=== PATIENT | male | born 1955 | race Hispanic/Latino ===

== ENCOUNTER 2017-04-21 08:17 | Outpatient (CLI) | payer MEDICARE ==
--- NOTE | 2017-04-21 12:01 | PRG ---
DATE OF SERVICE: 04/21/2017 CHIEF COMPLAINT: Pain on the left foot. HISTORY OF PRESENT ILLNESS: A 61-year-old male who presents today for concern of a spot on the left foot under the left fifth metatarsal head. He says about 5 months ago it started hurting, increased pain with walking. He did notice about a week or so ago that it had some peeling skin around the are a. He went to his physician who gave him a topical antibiotic and referred [facility]. He says it has improved since that time. The patient's foot history does include a previous in fected ulceration to the right foot which required some resection of bone from the lateral aspect of the right foot. PAST MEDICAL HISTORY/PAST SURGICAL HISTORY/MEDICATIONS/ ALLERGIES/FAMILY HISTORY/SOCIAL HISTORY: As documented in the patient's paper chart in the [facility]. This was reviewed and deemed accur ate. REVIEW OF SYSTEMS: CONSTITUTIONAL: Denies nausea, vomiting, fevers or chills. NEUROLOGIC: Denies numbness, tingling or burning sensations in the feet. INTEGUMENTARY: Relates so me peeling skin to the left foot, but no open wounds. PHYSICAL EXAMINATION: VITAL SIGNS: Temperature 97.9, pulse 64, respirations 18, blood pressure 190/79. Blood sugar was 13 0. GENERAL: The patient is in no acute distress. He is alert and oriented x3. CARDIOVASCULAR: Dorsalis pedis pulses palpable, posterior tibial pulses are nonpalpable bilaterally. There is decreased hair growth to the feet. Temperature gradient is warm to cool from proximal to distal. There is absent hair growth. Capillary fill time is immediate to all toes. No varicosities present. NEUROLOGICAL: Light touch protective threshold intact on cursory exam. INTEGUMENTARY: No calluses or hyperkeratosis noted. The lateral aspect of the fifth metatarsal is somewhat reddened, there is s ome tenderness over this lateral eminence. MUSCULOSKELETAL: There is a tailor's bunion deformity on the left foot with tenderness to palpation of this area. ASSESSMENT: 1. Tailor's bunion, left foot. 2. Diabetes with mild peripheral arterial disease. PLAN: 1. Counseled the patient on his condition and treatment options. As this is a [facility]ound Care Clinic, he probably should not be seen here for this concern, I am referring him to Dr. Amarjit as he lives in [facility] to follow up for routine diabetic foot checks and care. She can also evaluate the tailor's b union and guide him in treatment for this condition. 2. He can also follow up with me in [place] office at any time for any other concerns.
== END 2017-04-21 08:18 | disposition home or self-care (01) ==
LOC: WCC 08:17
PROVIDERS: ATTEND Podiatrist Foot & Ankle Surgery
DX: M21.622 Bunionette of left foot (principal); E11.51 Type 2 diabetes mellitus with diabetic peripheral angiopathy without gangrene
CPT/HCPCS: 97139; G0463; 99203

== ENCOUNTER 2017-05-06 16:10 | Emergency (ER) | payer MEDICARE ==
[2017-05-06 16:47] LABS: #Basophils 0.1 thou/uL (0.0-0.2); #Eosinphils 0.2 thou/uL (0.0-0.7); #Lymphocytes 1.3 thou/uL (1.20-3.40); #Monocytes 0.6 thou/uL (0.11-0.59); #Neutrophils 4.1 thou/uL (1.40-6.50); %Basophils 1.1 % (0.0-1.0); %Eosinophils 2.8 % (0.0-10.0); %Lymphocytes 20.6 % (21.0-51.0); %Monocytes 9.3 % (0.0-10.0); %Neutrophils 66.4 % (42.0-75.0); Hemoglobin 9.4 g/dL (14.0-18.0); Mean Corpuscular HGB CONC 33.7 g/dL (32.0-36.0); Mean Corpuscular Hemoglobin 29.5 pg (27.0-31.0); Mean Corpuscular Volume 87.4 fl (80.0-94.0); Mean Platelet Volume 8.1 fL (7.4-10.4); Platelet Count 160 thou/uL (130-400); RBC Distribution Width 12.1 % (11.5-14.5); Red Blood Cell (RBC) Count 3.19 mill/uL (4.70-6.10); White Blood Cell (WBC) Count 6.2 thou/uL (4.8-10.8)
--- NOTE | 2017-05-06 16:57 | RAD ---
PORTABLE AP CHEST X-RAY: 05/06/17 HISTORY: Chest pain and shortness of breath which began yesterday. COMPARISON: 04/23/15. FINDINGS: The cardiac silhouette is magnified by projection but does appear enlarged and is stable in size from prior exam. The lungs are clear. there has been no interval change from the prior exam. Linear atele ctasis versus scarring in the left mid lung zone and left lung base is again present. No other inter jin change. IMPRESSION: 1. Stable chest without evidence of an acute cardiopulmonary process. 2. Mild cardiomegaly. POS: [facility]
[2017-05-06 17:03] LABS: ALT (SGPT) 32 U/L (8-55); AST (SGOT) 22 U/L (5-34); Alkaline Phosphatase 115 U/L (40-150); Anion Gap 14 mmol/L (10-20); BUN (Urea Nitrogen) 31 mg/dL (8.4-25.7); Bilirubin, Total 0.4 mg/dL (0.2-1.2); CK (CPK) 90 U/L (30-200); Calc. Creatinine Clearance 0 mL/min (70-130); Calcium 9.2 mg/dL (7.8-10.44); Carbon Dioxide 21 mmol/L (23-31); Chloride 108 mmol/L (98-107); Estimated GFR-MDRD 55; Globulin 3.4 g/dL (2.4-3.5); Glucose 152 mg/dL (80-115); Potassium 4.9 mmol/L (3.5-5.1); Protein, Total 7.4 g/dL (5.8-8.1); Sodium 138 mmol/L (136-145)
[2017-05-06 17:04] LABS: Troponin I Less than 0.010 ng/mL (< 0.028)
--- NOTE | 2017-05-20 21:01 | EKG ---
Test Reason : Blood Pressure : / mmHG Vent. Rate : 059 BPM Atrial Rate : 059 BPM P-R Int : 174 ms QRS Dur : 102 ms QT Int : 422 ms P-R-T Axes : 056 030 038 degrees QTc Int : 417 ms Poor data quality, interpretation may be adversely affected Sinus bradycardia Otherwise normal ECG Confirmed by MARGO WEBER, ANNAMARIE ([id number]), online editor WENDI GRIFFIN ([id number]) on 05/20/2017 9:01:17 PM Referred By: Confirmed By:ANNAMARIE ARAGON MD
== END 2017-05-06 17:23 | disposition home or self-care (01) ==
LOC: SCSER 16:10
DX: R07.89 Other chest pain (principal); E11.9 Type 2 diabetes mellitus without complications; E78.5 Hyperlipidemia, unspecified; D64.9 Anemia, unspecified; I10 Essential (primary) hypertension; Z79.4 Long term (current) use of insulin; Z79.82 Long term (current) use of aspirin; Z79.899 Other long term (current) drug therapy
CPT/HCPCS: 36415; 71045; 80053; 82550; 82553; 84484; 85025; 93005

== ENCOUNTER 2017-05-19 22:42 | Inpatient (IN) | payer MEDICARE ==
[2017-05-19 23:04] LABS: #Eosinphils 0.2 thou/uL (0.0-0.7); #Lymphocytes 1.4 thou/uL (1.20-3.40); #Monocytes 0.9 thou/uL (0.11-0.59); %Basophils 0.5 % (0.0-1.0); %Eosinophils 2.3 % (0.0-10.0); %Lymphocytes 14.8 % (21.0-51.0); %Neutrophils 73.5 % (42.0-75.0); Hemoglobin 9.2 g/dL (14.0-18.0); Mean Corpuscular HGB CONC 33.5 g/dL (32.0-36.0); Mean Corpuscular Hemoglobin 30.1 pg (27.0-31.0); Mean Corpuscular Volume 89.9 fl (80.0-94.0); Mean Platelet Volume 7.9 fL (7.4-10.4); Platelet Count 191 thou/uL (130-400); RBC Distribution Width 12.4 % (11.5-14.5); Red Blood Cell (RBC) Count 3.05 mill/uL (4.70-6.10); White Blood Cell (WBC) Count 9.6 thou/uL (4.8-10.8)
[2017-05-19] MEDS ORDERED: Nitroglycerin 2% Ointment 1 INCH/1 GM Packet ONE (23:17)
[2017-05-19] MEDS ORDERED: Furosemide 40 MG/4 ML VIAL ONE (23:17)
[2017-05-19 23:27] LABS: ALT (SGPT) 18 U/L (8-55); AST (SGOT) 16 U/L (5-34); Albumin 4.1 g/dL (3.4-4.8); Alkaline Phosphatase 146 U/L (40-150); Anion Gap 14 mmol/L (10-20); BUN (Urea Nitrogen) 36 mg/dL (8.4-25.7); Bilirubin, Total 0.7 mg/dL (0.2-1.2); CK (CPK) 84 U/L (30-200); Calc. Creatinine Clearance 0 mL/min (70-130); Calcium 9.2 mg/dL (7.8-10.44); Carbon Dioxide 21 mmol/L (23-31); Chloride 108 mmol/L (98-107); Estimated GFR-MDRD 55; Globulin 3.7 g/dL (2.4-3.5); Glucose 92 mg/dL (80-115); Potassium 4.7 mmol/L (3.5-5.1); Protein, Total 7.8 g/dL (5.8-8.1); Sodium 138 mmol/L (136-145)
--- NOTE | 2017-05-19 23:30 | RAD ---
PORTABLE AP CHEST X-RAY 05/19/17 HISTORY: Shortness of breath, difficulty breathing for two weeks. COMPARISON: 05/06/17. FINDINGS: The cardiac silhouette is magnified by projection but is stable in size and does appear mildly enlarg ed. There is suggestion of mild increased air space opacity in the retrocardiac region left lung base which may be related to atelectasis, although pneumonitis is not entirely excluded. There is stable linear densities within the left mid lung field and left suprahilar region which may be related to ar eas of scarring and are unchanged compared to studies dating back to 03/31/15. The right lung is clear . Pulmonary vasculature is within normal limits. There has been no interval change from prior exam. IMPRESSION: 1. Suggestion of mild patchy air space opacity in the retrocardiac region left lung base which m ay be related to either atelectasis or pneumonitis. Followup PA and lateral chest x-ray suggested. 2. Chronic changes left lung. POS: [facility]
[2017-05-19 23:31] LABS: CKMB 1.3 ng/mL (0-6.6); Troponin I Less than 0.010 ng/mL (< 0.028)
[2017-05-20] MEDS ORDERED: hydrALAZINE 20 MG/ML VIAL ONE (00:22)
[2017-05-20 01:56] VITALS: BMI 35.4
[2017-05-20 02:46] LABS: #Basophils 0.1 thou/uL (0.0-0.2); #Eosinphils 0.2 thou/uL (0.0-0.7); #Lymphocytes 1.5 thou/uL (1.20-3.40); #Neutrophils 7.1 thou/uL (1.40-6.50); %Basophils 0.5 % (0.0-1.0); %Eosinophils 2.2 % (0.0-10.0); %Lymphocytes 15.1 % (21.0-51.0); %Monocytes 9.9 % (0.0-10.0); %Neutrophils 72.3 % (42.0-75.0); Mean Corpuscular HGB CONC 33.2 g/dL (32.0-36.0); Mean Corpuscular Volume 90.5 fl (80.0-94.0); Mean Platelet Volume 7.9 fL (7.4-10.4); Platelet Count 188 thou/uL (130-400); RBC Distribution Width 12.4 % (11.5-14.5); Red Blood Cell (RBC) Count 3.01 mill/uL (4.70-6.10); White Blood Cell (WBC) Count 9.8 thou/uL (4.8-10.8)
[2017-05-20 03:07] LABS: Troponin I Less than 0.010 ng/mL (< 0.028)
[2017-05-20 03:13] LABS: ALT (SGPT) 16 U/L (8-55); AST (SGOT) 13 U/L (5-34); Alkaline Phosphatase 134 U/L (40-150); Anion Gap 12 mmol/L (10-20); BUN (Urea Nitrogen) 35 mg/dL (8.4-25.7); Bilirubin, Total 0.7 mg/dL (0.2-1.2); Calc. Creatinine Clearance 79 mL/min (70-130); Calcium 9.2 mg/dL (7.8-10.44); Carbon Dioxide 23 mmol/L (23-31); Chloride 107 mmol/L (98-107); Estimated GFR-MDRD 59; Globulin 3.2 g/dL (2.4-3.5); Glucose 109 mg/dL (80-115); Magnesium 2.4 mg/dL (1.6-2.6); Potassium 4.3 mmol/L (3.5-5.1); Protein, Total 7.2 g/dL (5.8-8.1); Sodium 138 mmol/L (136-145)
[2017-05-20 06:13] LABS: Troponin I Less than 0.010 ng/mL (< 0.028)
[2017-05-20] MEDS ORDERED: Sodium Chloride 0.9% 10 ML ONE (07:12)
[2017-05-20] MEDS ORDERED: Prevnar 13-Val Conj/PF 0.5 ML SYRINGE IM ONE (09:00)
[2017-05-20] MEDS ORDERED: Dextrose 5% in Water 1,000 ML IV PRN (10:27)
[2017-05-20] MEDS ORDERED: Dextrose 50% Abboject 50 ML SYRINGE SLOW IVP PRN (10:27)
[2017-05-20] MEDS ORDERED: Acetaminophen 325 MG TAB PO PRN (10:27)
[2017-05-20] MEDS ORDERED: Bisacodyl 5 MG TAB PO PRN (10:27)
[2017-05-20] MEDS ORDERED: Acetaminophen 650 MG Suppository PR PRN (10:27)
--- NOTE | 2017-05-20 12:37 | HP ---
PRIMARY CARE PHYSICIAN: Cat Babin M.D. CHIEF COMPLAINT: Shortness of breath. HISTORY OF PRESENT ILLNESS: Mr. Bhat is a pleasant 61-year-old gentleman, who was seen at [facility] on 05/20/2017. He speaks Albanian, but is primarily a Nepali speaker. Family member in the room provided translation. He reports that over the last 2 weeks, he has been having shortness of breath when lying flat. He also reports paroxysmal nocturnal dyspnea. He also reports shortness of breath with exertion. He reports cough that is nonproductive. He denies any chest pain. He also reports leg swelling over the last couple of weeks. He also reports that he has a sensation of abdominal bloating over the same period. He came to the emergency room because of ongoing symptoms. He reportedly went to an emergency room 2 days ago and was told that he had fluid in lungs. REVIEW OF SYSTEMS: The following complete review of systems was negative, unless otherwise mentioned in the HPI or below: Constitutional: Weight loss or gain, ability to conduct usual activities. Skin: Rash, itching. Eyes: Double vision, pain. ENT/Mouth: Nose bleeding, neck stiffness, pain, tenderness. Cardiovascular: Palpitations, dyspnea on exertion, orthopnea. Respiratory: Shortness of breath, wheezing, cough, hemoptysis, fever or night sweats. Gastrointestinal: Poor appetite, abdominal pain, heartburn, nausea, vomiting, constipation, or diarrhea. Genitourinary: Urgency, frequency, dysuria, nocturia. Musculoskeletal: Pain, swelling. Neurologic/Psychiatric: Anxiety, depression. Allergy/Immunologic: Skin rash, bleeding tendency. 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 PAST SURGICAL HISTORY: Significant for renal transplant, right foot ulcer surgery, bilateral eye surgery, and dialysis shunt in left arm. SOCIAL HISTORY: The patient denies tobacco use, alcohol use or recreational drug use. He lives at home with family. ALLERGIES: No known drug allergies. CURRENT MEDICATIONS: Include aspirin 81 mg daily, Lipitor 10 mg at bedtime, Pepcid 20 mg daily, Lasix 20 mg 2 times a day, Glucotrol 10 mg 2 times a day, Humalog insulin per sliding scale, Apresoline 50 mg 4 times a day, Lantus insulin 28 units in the evening, Cozaar 50 mg at bedtime, magnesium oxide 400 mg daily, meloxicam 1 tablet daily, metoprolol tartrate 25 mg 2 times a day, mycophenolate 360 mg 2 times a day, Procardia-XL 60 mg daily, omeprazole 20 mg daily, Prograf 1 mg 2 times a day. FAMILY HISTORY: The patient denies any family history of premature coronary artery disease. PHYSICAL EXAMINATION: GENERAL: Mr. Bhat is awake and alert, not in acute distress. VITAL SIGNS: He is afebrile. Blood pressure is 124/59, pulse is 63. He is breathing at rate of 20 and saturating 93% on room air. He is obese, with a BMI of 35.5. EYES: No scleral icterus. No conjunctival pallor. ENT: Moist mucosal membranes, no oropharyngeal erythema or exudates. NECK: Supple, nontender, trachea is midline. Unable to assess jugular veins. RESPIRATORY: Accessory muscles of breathing are not active. Chest wall movements are symmetric bilaterally. He has few bibasilar crackles. CARDIOVASCULAR: S1 and S2 are heard, regular. Peripheral pulses are palpable. No carotid bruit, no pericardial rub. ABDOMEN: Distended, nontender, bowel sounds are heard, no hepatomegaly, no splenomegaly. NEUROLOGIC: He is blind in the left eye. Otherwise, cranial nerves II through XII intact, deep tendon reflexes are 2+. MUSCULOSKELETAL: Power is 5/5 in all four extremities. He has bilateral lower extremity pitting edema. SKIN: No rashes or subcutaneous nodules. LYMPHATIC: No cervical lymphadenopathy. PSYCHIATRIC: Normal mood, normal affect, the patient is oriented to person, place, and time. LABORATORY DATA: Mr. Bhat labs and investigations were reviewed. I reviewed his electrocardiogram, which shows normal sinus rhythm, no ST changes to suggest an acute coronary syndrome. I also reviewed his chest x-ray, which does not show any acute changes. He has normal white count, normocytic anemia with hemoglobin 9.0, normal platelet count, unremarkable comprehensive metabolic profile, creatinine 1.25, GFR 59, troponin I that is negative x2 and BNP elevated at 323. ASSESSMENT AND PLAN: Mr. Bhat is a pleasant 61-year-old gentleman, who was seen at [facility] on 05/20/2017. His problem list includes: 1. Shortness of breath: Most likely secondary to congestive heart failure exacerbation. The patient denies any previous history of congestive heart failure, although he is on diuretics at home. 2. Congestive heart failure exacerbation: Stage C per ACC/AHA classification. We will start the patient on intravenous diuretics, cautiously, since he is a renal transplant patient. We will check 2D echocardiogram to evaluate his heart function. I should note that he had a normal stress test in 04/2015, at which time his left ventricular ejection fraction was greater than 70%. We will also consult Cardiology for new diagnosis of congestive heart failure. 3. History of renal transplant: Continue home medications including tacrolimus and mycophenolate. 4. Diabetes mellitus type 2: Continue home medications, start Accu-Cheks and insulin sliding scale. 5. Hypertension: Monitor vital signs, titrate antihypertensives as needed. 6. Dyslipidemia: Continue atorvastatin. Many thanks for allowing me to participate in your patient's care. Please feel free to contact me with any questions or concerns. LEVEL OF RISK: High. LEVEL OF COMPLEXITY: High. MTDD
[2017-05-20] MEDS: hydrALAZINE 25 MG TAB PO SCH ×3 (12:50→21:16)
[2017-05-20] MEDS: HumaLOG 300 UNITS/3 ML VIAL SC PRN ×2 (12:52→16:55)
[2017-05-20] MEDS ORDERED: Furosemide 40 MG/4 ML VIAL SLOW IVP SCH (14:00)
[2017-05-20] MEDS: Furosemide 20 MG/2 ML VIAL SLOW IVP SCH (14:42)
[2017-05-20] MEDS: glipiZIDE 10 MG TAB PO SCH (16:53)
[2017-05-20] MEDS ORDERED: INSULIN GLARGINE HUM REC ANLOG 28 UNIT SQ SCH (21:00)
[2017-05-20] MEDS ORDERED: Furosemide 20 MG TAB PO SCH (21:00)
[2017-05-20] MEDS: Mycophenolate ER 180 MG TAB PO SCH (21:17)
[2017-05-20] MEDS: Atorvastatin Calcium 10 MG TAB PO SCH (21:17)
[2017-05-20] MEDS: Tacrolimus 1 MG CAP PO SCH (21:17)
[2017-05-20] MEDS: Metoprolol Tartrate 25 MG TAB PO SCH (21:17)
[2017-05-20] MEDS: Insulin Detemir 100 UNITS/ML 28 UNITS in Pre-Filled Syringe 1 EACH SC SCH (21:18)
[2017-05-21] MEDS: NIFEdipine XL 60 MG TAB PO SCH (04:32)
[2017-05-21] MEDS: Furosemide 20 MG/2 ML VIAL SLOW IVP SCH ×2 (04:34→14:40)
[2017-05-21 05:06] LABS: #Eosinphils 0.2 thou/uL (0.0-0.7); #Lymphocytes 1.2 thou/uL (1.20-3.40); #Monocytes 0.8 thou/uL (0.11-0.59); #Neutrophils 5.9 thou/uL (1.40-6.50); %Basophils 0.2 % (0.0-1.0); %Eosinophils 3.1 % (0.0-10.0); %Lymphocytes 14.6 % (21.0-51.0); %Monocytes 10.1 % (0.0-10.0); Hemoglobin 8.8 g/dL (14.0-18.0); Mean Corpuscular HGB CONC 33.7 g/dL (32.0-36.0); Mean Corpuscular Hemoglobin 30.5 pg (27.0-31.0); Mean Corpuscular Volume 90.6 fl (80.0-94.0); Platelet Count 178 thou/uL (130-400); RBC Distribution Width 12.5 % (11.5-14.5); Red Blood Cell (RBC) Count 2.89 mill/uL (4.70-6.10); White Blood Cell (WBC) Count 8.1 thou/uL (4.8-10.8)
[2017-05-21 05:15] LABS: Anion Gap 10 mmol/L (10-20); BUN (Urea Nitrogen) 36 mg/dL (8.4-25.7); Calc. Creatinine Clearance 79 mL/min (70-130); Calcium 8.9 mg/dL (7.8-10.44); Carbon Dioxide 25 mmol/L (23-31); Chloride 110 mmol/L (98-107); Estimated GFR-MDRD 61; Glucose 130 mg/dL (80-115); Potassium 4.4 mmol/L (3.5-5.1); Sodium 141 mmol/L (136-145)
[2017-05-21] MEDS ORDERED: Sodium Chloride 0.9% 10 ML ONE (07:03)
[2017-05-21] MEDS: hydrALAZINE 25 MG TAB PO SCH ×4 (07:53→21:19)
[2017-05-21] MEDS: Metoprolol Tartrate 25 MG TAB PO SCH ×2 (07:53→21:19)
[2017-05-21] MEDS: Famotidine 20 MG TAB PO SCH (07:53)
[2017-05-21] MEDS: glipiZIDE 10 MG TAB PO SCH ×2 (07:54→17:32)
[2017-05-21] MEDS: Magnesium Oxide 400 MG TAB PO SCH (07:54)
[2017-05-21] MEDS: Enoxaparin Sodium 40 MG/0.4 ML SYRINGE SC SCH (07:55)
[2017-05-21] MEDS: Mycophenolate ER 180 MG TAB PO SCH ×2 (07:55→21:19)
[2017-05-21] MEDS: Tacrolimus 1 MG CAP PO SCH ×2 (08:43→21:20)
[2017-05-21] MEDS: Meloxicam 15 MG TAB PO SCH (08:44)
[2017-05-21] MEDS: HumaLOG 300 UNITS/3 ML VIAL SC PRN ×2 (12:31→17:32)
--- NOTE | 2017-05-21 13:12 | PDOC.PN ---
- Subjective Encounter Start Date: 05/21/17 Encounter Start Time: 09:00 Pt seen for followup re: CHF exacerbation. Denies chest pain. Shortness fo breath is better. No cough, fevers or chills. - Objective MAR Reviewed: Yes Vital Signs & Weight: Vital Signs (12 hours) Temp Pulse Pulse Pulse Resp BP BP 05/21/17 12:25 98.0 F 57 L 19 05/21/17 10:17 60 57 L 138/61 05/21/17 07:53 60 05/21/17 07:48 97.7 F 60 19 05/21/17 04:32 58 L 186/80 H 05/21/17 04:20 98.2 F 58 L 16 05/21/17 04:00 98.2 F 58 L 16 BP BP BP Pulse Ox Pulse Ox Pulse Ox 05/21/17 12:25 161/70 H 96 05/21/17 10:17 135/63 94 L 93 L 05/21/17 07:53 05/21/17 07:48 192/82 H 94 L 05/21/17 04:32 05/21/17 04:20 186/80 H 95 05/21/17 04:00 186/80 H 95 Weight Weight 195 lb 8 oz I&O: 05/20/17 05/21/17 05/22/17 06:59 06:59 06:59 Intake Total 360 Output Total 1150 550 Balance -1150 -190 Result Diagrams: 05/21/17 04:15 05/21/17 04:15 Additional Labs: Accuchecks 05/21/17 05/21/17 05/20/17 10:48 06:14 20:57 POC Glucose 206 H 119 H 160 H 05/20/17 16:38 POC Glucose 216 H EKG Reviewed by me: Yes (Tele: sinus bradycardia) Phys Exam - Physical Examination Obesity HEENT: PERRLA, moist MMs, sclera anicteric, oral pharynx no lesions Neck: no nodes, supple, full ROM JVD Respiratory: no wheezing, no rhonchi Ge[place]any crackles Cardiovascular: RRR, no rub Gastrointestinal: soft, non-tender, positive bowel sounds distention Musculoskeletal: edema present Neurological: moves all 4 limbs Psychiatric: normal affect Dx/Plan (1) CHF exacerbation Code(s): I50.9 - HEART FAILURE, UNSPECIFIED Status: Acute Comment: Continue diuretics. Awaiting 2D echo report from outside facility. (2) Diabetes type 2, controlled Code(s): E11.9 - TYPE 2 DIABETES MELLITUS WITHOUT COMPLICATIONS Status: Chronic Comment: Continue accuchecks, insulin sliding scale (3) Dyslipidemia Code(s): E78.5 - HYPERLIPIDEMIA, UNSPECIFIED Status: Chronic Comment: continue statin (4) Hypertension Code(s): I10 - ESSENTIAL (PRIMARY) HYPERTENSION Status: Chronic Comment: Monitor vital signs, titrate antihypertensives as needed (5) Renal transplant, status post Code(s): Z94.0 - KIDNEY TRANSPLANT STATUS Status: Chronic Comment: continue mycophenolate, tacrolimus - Plan plan discussed w/ family, out of bed/ambulate * . Review of Systems - Review of Systems Constitutional: negative: fever, chills, sweats, weakness, malaise Respiratory: Shortness of Breath, SOB with Excertion. negative: Cough, Hemoptysis, Pleuritic Pain, Wheezing Cardiovascular: orthopnea, paroxysmal nocturnal dyspnea. negative: chest pain, palpitations, edema, light headedness Gastrointestinal: negative: Nausea, Vomiting, Abdominal Pain, Diarrhea, Constipation, Melena, Hematochezia Genitourinary: negative: Dysuria, Frequency, Incontinence, Hematuria, Retention Skin: negative: Rash, Lesions, Carlos, Bruising - Medications/Allergies Allergies/Adverse Reactions: Allergies Allergy/AdvReac Type Severity Reaction Status Date / Time No Known Drug Allergies Allergy Verified 04/23/15 19:39 Medications: Current Medications Acetaminophen (Tylenol) 650 mg PO Q4H PRN PRN Reason: Headache/Fever or Pain Acetaminophen (Tylenol) 650 mg IN Q4H PRN PRN Reason: Headache/Fever or Pain Aspirin (Aspirin Chewable) 81 mg PO DAILY [facility] Last Admin: 05/21/17 07:54 Dose: 81 mg Atorvastatin Calcium (Lipitor) 10 mg PO HS [facility] Last Admin: 05/20/17 21:17 Dose: 10 mg Bisacodyl (Dulcolax) 10 mg PO DAILYPRN PRN PRN Reason: Constipation Dextrose/Water (Dextrose 50%) 25 gm SLOW IVP PRN PRN PRN Reason: Hypoglycemia Enoxaparin Sodium (Lovenox) 40 mg SC 0900 [facility] Last Admin: 05/21/17 07:55 Dose: 40 mg Famotidine (Pepcid) 20 mg PO DAILY [facility] Last Admin: 05/21/17 07:53 Dose: 20 mg Furosemide (Lasix) 20 mg SLOW IVP 0600,1400 [facility] Last Admin: 05/21/17 04:34 Dose: 20 mg Glipizide (Glucotrol) 10 mg PO BID[facility] Last Admin: 05/21/17 07:54 Dose: 10 mg Glucagon (Glucagon) 1 mg IM PRN PRN PRN Reason: Hypoglycemia Hydralazine HCl (Apresoline) 50 mg PO QID [facility] Last Admin: 05/21/17 12:31 Dose: 50 mg Dextrose/Water (D5w) 1,000 mls @ 0 mls/hr IV .Q0M PRN; As Directed PRN Reason: Hypoglycemia Insulin Detemir 28 units/ (Miscellaneous Medication) 0.28 mls @ 0 mls/hr SC [facility] PRN Reason: As Directed Last Admin: 05/20/17 21:18 Dose: Not Given Insulin Human Lispro (Humalog) 0 units SC .MILD SLIDING SCALE PRN PRN Reason: Mild Correctional Scale Last Admin: 05/21/17 12:31 Dose: 2 unit Losartan Potassium (Cozaar) 50 mg PO [facility] Magnesium Oxide (Magnesium Oxide) 400 mg PO DAILY [facility] Last Admin: 05/21/17 07:54 Dose: 400 mg Meloxicam (Mobic) 15 mg PO DAILY-[facility] Last Admin: 05/21/17 08:44 Dose: 15 mg Metoprolol Tartrate (Lopressor) 25 mg PO BID [facility] Last Admin: 05/21/17 07:53 Dose: 25 mg Mycophenolate Sodium (Myfortic) 360 mg PO BID [facility] Last Admin: 05/21/17 07:55 Dose: 360 mg Nifedipine (Procardia Xl) 60 mg PO DAILY [facility] Last Admin: 05/21/17 04:32 Dose: 60 mg Pantoprazole Sodium (Protonix) 40 mg PO DAILY-[facility] Last Admin: 05/21/17 07:53 Dose: 40 mg Tacrolimus (Prograf) 1 mg PO BID [facility] Last Admin: 05/21/17 08:43 Dose: 1 mg
[2017-05-21] MEDS ORDERED: cloNIDine 0.1 MG TAB PO PRN (18:17)
--- NOTE | 2017-05-21 18:23 | PDOC.CTH ---
<Digna Garcia - Last Filed: 05/21/17 18:18> Cardiology Progress Note - Subjective The pt seen and examined. No overnight events. No cardiac complaints. - Objective Vital Signs Temp Pulse Pulse Pulse Resp BP BP 05/21/17 16:00 97.7 F 58 L 18 05/21/17 12:25 98.0 F 57 L 19 05/21/17 10:17 60 57 L 138/61 135/63 05/21/17 07:53 60 05/21/17 07:48 97.7 F 60 19 BP BP Pulse Ox Pulse Ox Pulse Ox 05/21/17 16:00 163/72 H 94 L 05/21/17 12:25 161/70 H 96 05/21/17 10:17 94 L 93 L 05/21/17 07:53 05/21/17 07:48 192/82 H 94 L Weight 195 lb 8 oz 05/20/17 05/21/17 05/22/17 06:59 06:59 06:59 Intake Total 360 960 Output Total 1133 752 7865 Balance -1150 -190 -150 - Physical Examination General/Neuro: alert & oriented x3 Neck: no JVD present Lungs: CTA (diminished at bases) Heart: RRR Abdomen: soft Extremities: other: (No edema) - Telemetry Telemetry Rhythm: SR 60s - Labs Result Diagrams: 05/21/17 04:15 05/21/17 04:15 Troponin/CKMB CK-MB (CK-2) 1.3 ng/mL (0-6.6) 05/19/17 22:49 Troponin I Less than 0.010 ng/mL (< 0.028) 05/20/17 05:47 - Assessment/Plan 1. Acute on Chronic diastolic HF - Stable with Lasix 20mg IV BID. Change Lasix 20mg from IV to PO. On BBlocker and ARE. 2. HTN - Start Clonidine 0.1mg PRN for SBP > 160. 3. DM type 2 - managed by PCP 4. Dyslipidemia - On Lipitor 10mg daily 5. S/p Renal transplant - managed by PCP and Dr Vazquez as outpt. MAR reviewed * Stress test from [facility] on 04/12/17 showed no ischemia with EF 63% * Echo in 2016 showed EF 60-65% with grade III diastolic dysfunction. Review of Systems - Review of Systems Constitutional: reports: no symptoms reported EENTM: reports: no symptoms reported Respiratory: reports: no symptoms reported Cardiac (ROS): reports: no symptoms reported ABD/GI: reports: no symptoms reported : reports: no symptoms reported Musculoskeletal: reports: no symptoms reported <Grant Bernard - Last Filed: 05/21/17 19:19> Cardiology Progress Note - Objective Vital Signs Temp Pulse Pulse Pulse Resp BP BP 05/21/17 16:00 97.7 F 58 L 18 05/21/17 12:25 98.0 F 57 L 19 05/21/17 10:17 60 57 L 138/61 135/63 05/21/17 07:53 60 05/21/17 07:48 97.7 F 60 19 BP BP Pulse Ox Pulse Ox Pulse Ox 05/21/17 16:00 163/72 H 94 L 05/21/17 12:25 161/70 H 96 05/21/17 10:17 94 L 93 L 05/21/17 07:53 05/21/17 07:48 192/82 H 94 L Weight 195 lb 8 oz 05/20/17 05/21/17 05/22/17 06:59 06:59 06:59 Intake Total 360 960 Output Total 0863 004 5091 Balance -1150 -190 -150 - Labs Result Diagrams: 05/21/17 04:15 05/21/17 04:15 Troponin/CKMB CK-MB (CK-2) 1.3 ng/mL (0-6.6) 05/19/17 22:49 Troponin I Less than 0.010 ng/mL (< 0.028) 05/20/17 05:47 - Assessment/Plan Pt. seen and eval. by me. The stress test from [facility] was normal. The echo today indicates an EF 50-55% with diastolic dysfunction. I agreee with nthe A/P by the ACCOUNTING ADVISORY SERVICES MANAGER.
[2017-05-21] MEDS ORDERED: Losartan 25 MG TAB PO SCH (21:00)
[2017-05-21] MEDS: Atorvastatin Calcium 10 MG TAB PO SCH (21:19)
[2017-05-21] MEDS: Insulin Detemir 100 UNITS/ML 28 UNITS in Pre-Filled Syringe 1 EACH SC SCH (21:20)
[2017-05-22 05:05] LABS: #Eosinphils 0.2 thou/uL (0.0-0.7); #Lymphocytes 1.3 thou/uL (1.20-3.40); #Monocytes 0.7 thou/uL (0.11-0.59); #Neutrophils 5.2 thou/uL (1.40-6.50); %Basophils 0.2 % (0.0-1.0); %Eosinophils 2.3 % (0.0-10.0); %Lymphocytes 17.8 % (21.0-51.0); %Monocytes 9.9 % (0.0-10.0); %Neutrophils 69.8 % (42.0-75.0); Hemoglobin 8.5 g/dL (14.0-18.0); Mean Corpuscular HGB CONC 33.3 g/dL (32.0-36.0); Mean Corpuscular Hemoglobin 30.2 pg (27.0-31.0); Mean Corpuscular Volume 90.7 fl (80.0-94.0); Platelet Count 167 thou/uL (130-400); RBC Distribution Width 12.6 % (11.5-14.5); White Blood Cell (WBC) Count 7.5 thou/uL (4.8-10.8)
[2017-05-22 05:17] LABS: Anion Gap 9 mmol/L (10-20); BUN (Urea Nitrogen) 34 mg/dL (8.4-25.7); Calc. Creatinine Clearance 77 mL/min (70-130); Carbon Dioxide 27 mmol/L (23-31); Chloride 110 mmol/L (98-107); Estimated GFR-MDRD 59; Glucose 110 mg/dL (80-115); Sodium 142 mmol/L (136-145)
[2017-05-22] MEDS: glipiZIDE 10 MG TAB PO SCH (08:29)
[2017-05-22] MEDS: Enoxaparin Sodium 40 MG/0.4 ML SYRINGE SC SCH (08:30)
[2017-05-22] MEDS: Magnesium Oxide 400 MG TAB PO SCH (08:30)
[2017-05-22] MEDS: Meloxicam 15 MG TAB PO SCH (08:30)
[2017-05-22] MEDS: Metoprolol Tartrate 25 MG TAB PO SCH (08:31)
[2017-05-22] MEDS: NIFEdipine XL 60 MG TAB PO SCH (08:31)
[2017-05-22] MEDS: hydrALAZINE 25 MG TAB PO SCH ×2 (08:31→13:51)
[2017-05-22] MEDS: Famotidine 20 MG TAB PO SCH (08:31)
[2017-05-22] MEDS: Furosemide 20 MG TAB PO SCH ×2 (08:31→13:51)
[2017-05-22] MEDS: Mycophenolate ER 180 MG TAB PO SCH (08:32)
[2017-05-22] MEDS: Tacrolimus 1 MG CAP PO SCH (08:35)
--- NOTE | 2017-05-22 12:49 | ADD-CON ---
ADDENDUM Please refer to the notes already dictated by the nurse practitioner. DATE OF CONSULTATION: 05/20/2017 DATE OF ADMISSION: 05/20/2017 INDICATION FOR CONSULTATION: CHF exacerbation. HISTORY OF PRESENT ILLNESS: This 61-year-old gentleman who has a history of diastolic heart failure, who speaks some Icelandic, but mainly is a primary Luxembourgish speaking person, has been having some probl ems with shortness of breath for quite some time now several years. He has undergone a renal transpl ant sometime back, but he has also been diagnosed with significant severe diastolic dysfunction with restrictive type pathology. This is by echocardiogram a couple years ago. Apparently, he presented to the hospital, also here a couple of years ago with some similar type symptoms, underwent diuresis and felt better. He had been on dialysis in the past. He no longer is on dialysis and appears to be doing well with his renal transplant, but he presented a couple of week or so ago to an outside hosp ital where he had some evaluation supposedly from a cardiac standpoint with positive stress test and echocardiogram, which did not show any significant abnormalities, apparently he has not been given th e results of the studies. He continued to have some shortness of breath and lower extremity edema an d then presented to our facility for further evaluation and treatment. At this time, he is breathing comfortably. He has minimal edema. It is almost completely resolved and has been diuresing somewha t. His BNP also was not significantly elevated. At this time, he denies any chest pain. His cardia c enzymes did not show any evidence of myocardial infarction. BNP was 323, which is only mildly elev ated and cardiac enzymes were negative for myocardial infarction. His creatinine is 1.25 with a BUN of 35. He sees Dr. Vazquez as his varnish maker. He has had no known cardiac history otherwise that we a re aware of except for the diastolic dysfunction. He has had negative stress test in the past. He a lso has a history of diabetes and hypertension as well as dyslipidemia and has had some history of br adycardia in the past, but at this time, he remains stable overall from a cardiac standpoint from wha t I can determine and is feeling better than when he was first arrived to our facility. For his past medical history, social history, family history, medication list and review of systems, please refer the notes dictated by the nurse practitioner. PHYSICAL EXAMINATION: GENERAL: Reveals a middle-aged gentleman who is in no acute distress at this time. Family members are in the room when helping with translations, but he does speak some Icelandic. VITAL SIGNS: His blood pressure is elevated at 207/81, earlier was 158/71, temperature is 99.7, hear t rates in the 60s and shows a sinus rhythm. Respiratory rate is 14. HEENT: Shows the head to be normocephalic and atraumatic. NECK: Carotid pulses are present. I did not hear any significant bruits. He does have a soft systo lic murmur over the aortic area, but otherwise no significant abnormalities. CHEST: Clear to auscultation without rales, rhonchi or wheezing. ABDOMEN: Soft and nontender. He has well healed surgical incision. He has a dialysis shunt in the left arm. He has no significant lower extremity edema. He does have some discoloration, evidence of some varicose veins and has minimal ankle edema. Pedal pulses are present. NEUROLOGIC: Appears to be intact. He does have blindness in the left eye due to glaucoma and has so me opacity there, otherwise unremarkable. SKIN: Warm and dry. IMPRESSION: 1. Congestive heart failure exacerbation due to diastolic dysfunction, which has been felt to be sev ere in the past. We will try to obtain the echocardiogram that was recently done at [facility] if one was done. If not, I would repeat the echocardiogram here. 2. History of negative stress test in the past. According to the family, he apparently had a recent stress test also at [facility]. We will try to obtain the results of that rather than repeatin g the stress test here, but he has had no history in the past of coronary artery disease. 3. History of diabetes. This is actually under reasonable control. This will be continued to be de alt with by the primary service. 4. History of renal transplant. He will need to be seen by Dr. Vazquez for further evaluation and treat ment to readjust his medications if necessary. His BNP was not significantly elevated. This would n ot indicate a significant systolic failure, but with this diastolic heart failure, we will need to co ntinue to monitor the blood pressures carefully as possible. His blood pressure is significantly sai vated. We will also need the assistance of Dr. Vazquez with his antihypertensive medications. At this t clyde, it does not appear to have a significant coronary artery problem. 5. History of bradycardia. He did not hear any significant ST segment changes and the heart rate arthur s remained stable. He is asymptomatic as far as the heart rate is concerned.
--- NOTE | 2017-05-22 13:00 | PDOC.CTH ---
Cardiology Progress Note - Subjective The pt seen and examined. No overnight events. No cardiac complaints. He denied dizziness or lightheadedness when he was walking around the unit. - Objective Vital Signs Temp Pulse Pulse Pulse Resp BP BP 05/22/17 12:45 98.2 F 78 18 05/22/17 12:05 71 05/22/17 10:02 48 L 46 L 168/76 H 163/67 H 05/22/17 08:40 98.6 F 52 L 16 05/22/17 07:35 98.6 F 52 L 16 05/22/17 05:30 05/22/17 05:27 97.9 F 52 L 16 BP BP Pulse Ox Pulse Ox Pulse Ox 05/22/17 12:45 156/71 H 95 05/22/17 12:05 05/22/17 10:02 96 95 05/22/17 08:40 05/22/17 07:35 181/77 H 98 05/22/17 05:30 95 05/22/17 05:27 153/68 H 95 Weight 192 lb 8 oz 05/21/17 05/22/17 05/23/17 06:59 06:59 06:59 Intake Total 360 1230 Output Total 550 1510 Balance -190 -280 - Physical Examination General/Neuro: alert & oriented x3 Neck: no JVD present Lungs: CTA (diminished at bases) Heart: RRR Extremities: other: (No edema) Other PE findings: SB 48-50s - Labs Result Diagrams: 05/22/17 04:17 05/22/17 04:17 Troponin/CKMB CK-MB (CK-2) 1.3 ng/mL (0-6.6) 05/19/17 22:49 Troponin I Less than 0.010 ng/mL (< 0.028) 05/20/17 05:47 - Assessment/Plan 1. Acute on Chronic diastolic HF - Stable with Lasix 20mg IV BID. Change Lasix 20mg from IV to PO. On ARE. BBlocker is on hold due to Bradycardia. 2. HTN - still elevated. Defer to senior engineering specialist 3. DM type 2 - managed by PCP 4. Dyslipidemia - On Lipitor 10mg daily 5. S/p Renal transplant - managed by PCP and Dr Vazquez as outpt. MAR reviewed * Stress test from [facility] on 04/12/17 showed no ischemia with EF 63% * Echo in 2016 showed EF 60-65% with grade III diastolic dysfunction. Echo on 05/21/17 showed EF 50-55%, diastolic dysfunction, mod-severe dilated RV, mild ANGELITO, mild MR, mild , trace TR. *From cardiac standpoint, the pt is stable to d/c home. The pt will f/u with Dr Melendez at [facility] within 2-4 wks. Review of Systems - Review of Systems Constitutional: reports: no symptoms reported EENTM: reports: no symptoms reported Respiratory: reports: no symptoms reported Cardiac (ROS): reports: no symptoms reported ABD/GI: reports: no symptoms reported : reports: no symptoms reported Musculoskeletal: reports: no symptoms reported
--- NOTE | 2017-05-22 14:04 | CON ---
DATE OF CONSULTATION: 05/20/2017 ROOM NO: 293. PRIMARY CARE PHYSICIAN: Dr. Cat Babin. PRIMARY MANAGEMENT SME: [facility], but here the patient's primary Cardiology in the [facility] is going to be Dr. Edelmira Bernard. REFERRING DOCTOR: Dr. Sandvoal. REASON FOR CARDIOLOGY CONSULT: Congestive heart failure. HISTORY OF PRESENT ILLNESS: Mr. Bhat is a 61-year-old male with significant history of chronic kidney disease, status post renal transplant in 08/2009, hypertension, diabetes type 2, and chronic anemia. Patient started having shortness of breath, tightness in his chest for about 3 weeks. He saw his primary care doctor who referred the patient to Dr. Melendez, who is a account development executive at [facility] in [place]. The patient has had a treadmill stress test about 2 weeks ago, which showed no ischemia. The patient did not have echocardiogram at that time. The patient was referred to GI doctor for possible gag reflux. He had not been seen by the patient's GI doctor yet. However, the patient's shortness of breath became worse last night. The patient decided to present to [facility] Emergency Department for further evaluation and treatment. The patient reports that the patient could not walk in a short distance without FROST or lay on the spine position due to worsen of shortness of breath. The patient also complained of abdominal bloating and bilateral lower extremity edema. Patient denies dizziness, lightheadedness, numbness in his left upper extremity or any other cardiac complaints. Since the patient received IV Lasix, the patient felt better and could sleep on the flat last night. PAST MEDICAL HISTORY: 1. Chronic kidney disease with status post renal transplant in 08/2009. 2. Hypertension. 3. Diabetes type 2. 4. 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 5. Chronic anemia. 6. Gout. PAST SURGICAL HISTORY: 1. Renal transplant in 08/2009, right foot ulcer surgery. 2. Bilateral eye surgery. 3. Dilation in the left arm. FAMILY HISTORY: Patient's sister passed due to complication of the kidney failure and heart problems. Also, he has a history of diabetes. Patient's one of the daughter due to breast cancer at the age of 32. SOCIAL HISTORY: He never used tobacco, he quit alcohol use about 10 years ago; however, recently he started drinking one beer once a week. He denied any illicit drug abuse. He and lives with his family. He had a sister who are due to breast cancer, his daughter and his children are alive and well. ALLERGIES: No known drug allergies. HOME MEDICATIONS: Lantus 28 units every p.m., magnesium 400 mg once a day, aspirin 81 mg once a day, glyburide glipizide 10 mg twice a day, losartan 50 mg once a day, atorvastatin 10 mg once a day, hydralazine 50 mg 4 times a day, Prograf 1 mg twice a day. Myfortic 360 mg twice a day, Procardia 60 mg once a day, Meloxicam 15 mg 1 tablet once a day, Humalog 2-8 units 3 times a day as needed, metoprolol 25 mg twice a day, Pepcid 20 mg once a day, Lasix 20 mg twice a day. REVIEW OF SYSTEMS: The following complete review of systems was negative, unless otherwise mentioned in the HPI or below. Constitutional: Weight loss again sense of well being, ability to conduct usual activities, exercise tolerance. Skin: Rash, itching, change in hair growth or loss, nail change. The patient was recently diagnosed as gout. Eyes: Legally blind to left eye. Other than that, no vision change, double vision, tearing, blind spot pain. HEENT: Headache, vertigo, lightheadedness, nasal bleed, cold, obstruction, discharge dental difficulty, gingival bleeding, neck stiffness, pain, tenderness , mass in the thyroid or other areas. Cardiovascular: Precordial pain, substernal distress, palpitation, orthopnea, cyanosis, claudication. Respiratory: Positive for shortness of breath, but negative for wheezing, stridor, cough or hemoptysis. Gastrointestinal: Poor appetite, dysphagia, indigestion, abdominal pain, diarrhea or constipation, abnormal or blood in the stool. Genitourinary: Urgency, frequency, dysuria, nocturia, hematuria, polyuria, oliguria, unusual color of urine. Musculoskeletal: Pain, swelling or redness. He is on less muscle or joint limit of motion, muscular weakness, atrophy, cramps. Neurologic: Seizure conversion paralyzed, tremor, incoordination. Psychiatric: Emotional problem, anxiety, depression, previous psychiatric care, unusual perception or hallucination. PHYSICAL EXAMINATION: VITAL SIGNS: Blood pressure 158/71, heart rate 60 with sinus rhythm, respiratory rate is 15, O2 saturation 97% with room air, temperature 97.7. GENERAL: Well-developed, well-nourished, without in acute distress. HEAD: Head normocephalic, atraumatic. Extraocular muscle movement intact. NECK: No JVD. Neck is supple and normal range of motion. LUNGS: Clear to auscultation bilaterally, but diminished at the bases. No wheezing, rales, or rhonchi noted. CARDIOVASCULAR: Regular rate and rhythm, normal S1, S2. There are no S3 or S4. There significant murmur to right middle sternal border, but no hives, thrill, bruits, or rub noted, 2+ in the bilateral dorsal pedis and posterior tibial and 1+ in the bilateral popliteal area. Carotid pulses are present to the right carotid, possible due to radiation from heart murmur. EXTREMITIES: Actually, no edema in the bilateral lower extremities. ABDOMEN: Soft and nontender or mass to palpate and distended, but is soft. Bowel sounds are present, according to the patient his stomach is really soft at this time, compared with prior to this admission. MUSCULOSKELETAL: Able to move all extremities. SKIN: Warm and dry. No skin rash or lesion or bruise noted. NEUROLOGIC: Alert, oriented x4, awake, normal affect. Nonfocal. PSYCHIATRIC: Mood and affect are normal. EKG: A 12-lead EKG in the ER, shows sinus rhythm and the heart rate is 64. LABORATORY DATA: WBC 9.8, hemoglobin 9.0, which was 9.2 yesterday, hematocrit 27.2, which was 27.4 yesterday, platelets 188. Sodium 138, potassium 4.3, BUN 35, creatinine 1.25, AST 30, ALT is 60, glucose of 109, CK-MB 1.3. Troponins are negative. BNP 323 and a chest x-ray showed chronic change in his left lung and suggestion of mild patchy airspace opacity in the retrocardiac region in the left lung base. ASSESSMENT AND PLAN: 1. Dyspnea on exertion with bilateral lower edema bilateral lower extremities edema and abdominal bloating. Patient's echocardiogram in 2015 showed the patient's normal EF with grade 3 diastolic dysfunction. According to family, patient has not followed up with any account development executive until this April and has not watched his fluid and salt intake or wearing compression stocking. At this moment, the patient is on the Lasix 20 mg IV push twice a day. Patient responses to the medication very well. We would like to continue the Lasix IV at this moment and a possible change to PO form tomorrow. The patient is on metoprolol as well. 2. Hypertension. The patient's vital signs are stable at this moment with current medication. We would like to continue to monitor. 3. History of renal transplant in 08/2009. The patient's creatinine has been stable at this moment. If the patient's creatinine increase, then possible renal Nephrology consult. We defer to patient's primary care doctor. 4. Diabetes type 2. He is on the insulin sliding scale, which managed by PCP. 5. Hyperlipidemia. He is on atorvastatin 10 mg once a day so far at this moment, the patient does not have any side effect. Thank you very much following Cardiology service to participate in the care of the patient. We will follow along with the patient care team and make further recommendations as appropriate. DOV
[2017-05-22] MEDS ORDERED: Amlodipine 5 MG TAB PO SCH (14:30)
[2017-05-22 15:50] VITALS: BP 154/68; TEMP 98.1
--- NOTE | 2017-05-22 22:31 | DIS ---
DATE OF ADMISSION: 05/20/2017 DATE OF DISCHARGE: 05/22/2017 PRIMARY CARE PROVIDER: Cat Babin M.D. DISCHARGE DIAGNOSES: 1. Congestive heart failure exacerbation. 2. Bradycardia. 3. Hypertension. CONSULTATIONS DURING THIS HOSPITALIZATION: Cardiology, Dr. Bernard. CONDITION OF PATIENT ON THE DAY OF DISCHARGE: Stable. I assessed Mr. Bhat on the day of discharg e. He denies any chest pain or shortness of breath. Vital signs are stable. S1 and S2 are heard, r egular. Lungs are clear to auscultation bilaterally. HOSPITAL COURSE: Mr. Bhat is a pleasant 61-year-old gentleman who was admitted to [facility] on 05/20/2017 for congestive heart failure exacerbation. He had a BNP level of 32 3. He was treated with intravenous diuretics, with improvement in his symptoms. He was also seen by Cardiology Service. He had 2D echocardiogram on 05/21/2017, which showed left ventricular ejection fraction of 50%-55% and diastolic dysfunction. He had moderate to severely dilated left atrium, mild ly enlarged right atrium, mild mitral regurgitation, somewhat thickened aortic valve leaflets, mild a ortic stenosis with valve area of 1.7 square centimeter and trace tricuspid regurgitation. He was also found to be bradycardic. His beta sourav has been stopped. He has been started on amlo dipine. He has been advised to check his blood pressure and heart rate 3 times a day and show the re adings to his primary care provider for further action. DISCHARGE MEDICATIONS: Amlodipine 5 mg daily, aspirin 81 mg daily, Lipitor 10 mg at bedtime, Pepcid 20 mg daily, Lasix 20 mg 2 times a day, Glucotrol 10 mg 2 times a day, Humalog insulin 2 to 8 units 3 times a day, hydralazine 50 mg 4 times a day, Lantus insulin 28 units every evening, Cozaar 50 mg at bedtime, magnesium oxide 400 mg daily, meloxicam 15 mg daily, Myfortic 360 mg 2 times a day, nifedip ine 60 mg daily, omeprazole 20 mg daily, and Prograf 1 mg 2 times a day. On the day of discharge, he has normal sodium, normal potassium, elevated blood urea nitrogen of 34, normal creatinine, normal white count, normocytic anemia with hemoglobin of 8.5 and normal platelet c ount. Many thanks for allowing me to participate in your patient's care. Please feel free to contact me wi th any questions or concerns. DISCHARGE DESTINATION: Home. TOTAL AMOUNT OF TIME SPENT COORDINATING THIS DISCHARGE: 33 minutes.
[2017-05-23] MEDS ORDERED: Amlodipine 5 MG TAB PO SCH (09:00)
--- NOTE | 2017-07-05 14:38 | EKG ---
Test Reason : SOB Blood Pressure : / mmHG Vent. Rate : 066 BPM Atrial Rate : 066 BPM P-R Int : 162 ms QRS Dur : 102 ms QT Int : 408 ms P-R-T Axes : 056 028 014 degrees QTc Int : 427 ms Normal sinus rhythm Nonspecific ST abnormality Abnormal ECG Confirmed by RENE ESCOTO ([id number]), sports editor WENDI GRIFFIN ([id number]) on 07/05/2017 2:38:08 PM Referred By: Confirmed By:RENE ESCOTO
== END 2017-05-22 17:54 | disposition home or self-care (01) | DRG 291 ==
LOC: ERS 22:42 → 2NO 05-20 01:03
PROVIDERS: ADMIT Internal Medicine; ATTEND Internal Medicine
DX: I13.0 Hypertensive heart and chronic kidney disease with heart failure and stage 1 through stage 4 chronic kidney disease, or unspecified chronic kidney disease (principal); I50.33 Acute on chronic diastolic (congestive) heart failure; E11.22 Type 2 diabetes mellitus with diabetic chronic kidney disease; Z94.0 Kidney transplant status; I08.3 Combined rheumatic disorders of mitral, aortic and tricuspid valves; D64.9 Anemia, unspecified; E78.5 Hyperlipidemia, unspecified; H54.62 Unqualified visual loss, left eye, normal vision right eye; I16.0 Hypertensive urgency; Z87.891 Personal history of nicotine dependence; R00.1 Bradycardia, unspecified; N18.9 Chronic kidney disease, unspecified; H40.9 Unspecified glaucoma
CPT/HCPCS: 36415; 36416; 71045; 80048; 80053; 82553; 83735; 83880; 84484; 85025; 90471; 90670; 93005; 93306; 93798; 96374; 96375; 99406; A4216; G0009; J0360; J1650; J1815; J1940; J7507

== ENCOUNTER 2017-07-08 21:39 | Inpatient (IN) | payer MEDICARE ==
[2017-07-08 22:36] LABS: #Eosinphils 0.1 thou/uL (0.0-0.7); #Lymphocytes 1.4 thou/uL (1.20-3.40); #Neutrophils 8.5 thou/uL (1.40-6.50); %Basophils 0.2 % (0.0-1.0); %Eosinophils 0.8 % (0.0-10.0); %Lymphocytes 12.6 % (21.0-51.0); %Neutrophils 77.4 % (42.0-75.0); Hemoglobin 7.8 g/dL (14.0-18.0); Mean Corpuscular HGB CONC 33.3 g/dL (32.0-36.0); Mean Corpuscular Hemoglobin 29.5 pg (27.0-31.0); Mean Corpuscular Volume 88.6 fl (80.0-94.0); Mean Platelet Volume 7.5 fL (7.4-10.4); Platelet Count 234 thou/uL (130-400); RBC Distribution Width 14.2 % (11.5-14.5); Red Blood Cell (RBC) Count 2.64 mill/uL (4.70-6.10)
[2017-07-08 22:55] LABS: ALT (SGPT) 42 U/L (8-55); AST (SGOT) 28 U/L (5-34); Albumin 3.9 g/dL (3.4-4.8); Alkaline Phosphatase 189 U/L (40-150); Anion Gap 14 mmol/L (10-20); BUN (Urea Nitrogen) 34 mg/dL (8.4-25.7); Bilirubin, Total 0.4 mg/dL (0.2-1.2); Calc. Creatinine Clearance 0 mL/min (70-130); Calcium 8.6 mg/dL (7.8-10.44); Carbon Dioxide 21 mmol/L (23-31); Chloride 106 mmol/L (98-107); Estimated GFR-MDRD 44; Globulin 3.8 g/dL (2.4-3.5); Glucose 173 mg/dL (80-115); Potassium 4.8 mmol/L (3.5-5.1); Protein, Total 7.7 g/dL (5.8-8.1); Sodium 136 mmol/L (136-145)
--- NOTE | 2017-07-08 23:20 | RAD ---
CHEST TWO VIEWS: INDICATIONS: Bodyaches. Headache. Dyspnea. COMPARISON: Reference made to a 05/19/2017 chest radiograph. FINDINGS: There is a subtle nodular density at the lateral right upper lung zone. No consolidation, effusion, or pneumothorax. The cardiac silhouette is mildly enlarged. There is prominence of the pulmonary va sculature. IMPRESSION: 1. Findings indicate congestive heart failure. 2. Subtle nodular density of the lateral right upper lung zone. Upon resolution of acute symptoms, recommend two view chest radiograph to confirm resolution of findi ngs. POS: [facility]
[2017-07-09] MEDS ORDERED: Ondansetron HCl/PF 4 MG/2 ML Vial IVP PRN (01:36)
[2017-07-09] MEDS ORDERED: Ondansetron ODT 4 MG TAB SL PRN (01:36)
[2017-07-09] MEDS ORDERED: Acetaminophen 325 MG TAB PO PRN (01:36)
[2017-07-09] MEDS ORDERED: ALPRAZolam 0.25 MG TAB PO SCH (03:15)
[2017-07-09] MEDS ORDERED: Furosemide 20 MG TAB PO SCH (06:00)
[2017-07-09] MEDS ORDERED: HumaLOG 300 UNITS/3 ML VIAL SC SCH (08:00)
--- NOTE | 2017-07-09 08:17 | HP ---
HISTORY OF PRESENT ILLNESS: This is a 61-year-old male with a known history of R sided renal transplant, chronic kidney disease, congestive heart failure, who presents with a chief complaint of body aches, fevers, and chills without objective fever. States that this has been going on for several days with accompanying shortness of breath, dry cough, and difficulty sleeping for the last 3 days. He is predominantly [place] speaking and is accompanied here by his daughter at bedside. At the time of my evaluation, he feels subjectively improved without continued bodyache, fever, or chills, but is still having difficulty falling asleep. Still has some shortness of breath with exertion but none at rest. No other new complaints since his ER evaluation. REVIEW OF SYSTEMS: As per HPI. Constitutional: No significant weight changes , subjective fevers, subjective chills. HEENT: Intermittent headache that is throughout his head. No dizziness, no lightheadedness. Respiratory: Shortness of breath with a dry cough that is grossly nonproductive; generalized shortness of breath, particularly worse with exertion. Denies any congestion. Cardiovascular: No chest pain, no chest pressure. Bilateral lower extremity swelling has been slightly progressive. Gastrointestinal: No nausea, no vomiting, no diarrhea or constipation, but has reported decreased appetite. Genitourinary: Denies any dysuria, change in urinary quality, quantity, or frequency. Musculoskeletal: Generalized body aches, nonspecific. Also, of note, patient has not slept in 3 days. Remainder of the review of systems, otherwise, negative. PAST MEDICAL HISTORY: Significant for, 1. Type 2 diabetes. 2. Hypertension. 3. Chronic renal disease, status post transplant of the right kidney 5 years ago. 4. Gout. 5. Hyperlipidemia. 6. Blind in the left eye. HOME MEDICATIONS: Please see the EMR for full details. His list appears to currently include the following, hydralazine 50 mg p.o. q.i.d., glipizide 10 mg p.o. b.i.d., tacrolimus 1 mg p.o. b.i.d., omeprazole 1 cap p.o. daily, nifedipine 60 mg p.o. daily, mycophenolate 360 mg p.o. b.i.d., meloxicam 1 tab p.o. daily, magnesium oxide 400 mg p.o. daily, losartan 50 mg p.o. at bedtime, insulin Glargine 28 units subcu q.p.m., Humalog 2 units t.i.d. for glucose greater than 150, furosemide 20 mg p.o. b.i.d., famotidine 20 mg p.o. daily, atorvastatin 10 mg p.o. at bedtime, aspirin 81 mg p.o. daily, and amlodipine 5 mg p.o. daily. ALLERGIES: No known drug allergies. FAMILY HISTORY: Denies any known family history of CHF or kidney disease requiring transplant. SOCIAL HISTORY: Occasional alcohol use. Denies any tobacco or illicit drug use. He is accompanied by family, his daughter with him today, endorses he wishes to be a FULL CODE at this point in time. PHYSICAL EXAMINATION: GENERAL: The patient is awake, alert, conversant, seated in a hospital chair. HEENT: Normocephalic, atraumatic, slightly dry mucous membranes, equal ocular motions are intact. CARDIOVASCULAR: S1 and S2. Pulses 2+ bilateral upper extremities. A 1 to 2+ bilateral lower extremity pitting pedal edema. RESPIRATORY: Reasonable air movement. No wheezes, rales, or rhonchi. Clear to auscultation, otherwise. ABDOMEN: Positive bowel sounds, soft, nontender to palpation. MUSCULOSKELETAL: Moving all 4 extremities on command. LABORATORY VALUES: 1. WBC 11.0, hemoglobin 7.8, hematocrit 23.4, platelets 234. Sodium 136, potassium 4.8, chloride 106, bicarbonate 21, BUN 34, creatinine 1.6, glucose 173 , calcium 8.6, total bilirubin 0.4, AST 28, ALT 42, alkaline phosphatase 189, total protein 7.7, albumin 3.9. 2. Chest x-ray, 07/08/2017, impression: "Findings indicate congestive heart failure. Subtle nodular density of the lateral right upper lung zone." ASSESSMENT AND PLAN: A 61-year-old male presenting with a chief complaint of body aches, fevers, chills, and shortness of breath. 1. Shortness of breath, certainly could be consistent with acute congestive heart failure exacerbation. We will continue the patient on his home regimen. The patient last had an echocardiogram in May of this year, so no repeat will be ordered at this point in time. Discontinue the patient's home furosemide 20 mg p.o. b.i.d. and initiate IV formulation for this, furosemide 20 mg IV b.i.d. , and continue to closely monitor the patient's renal function, electrolytes, particularly given his known history of renal transplant. 2. History of chronic kidney disease, status post right kidney transplant. Continue the patient on his home regimen, including his immunosuppressive regimen Closely monitor intake and output. 3. Generalized complaints of body aches, fevers, and chills without obvious foci of infection. We will continue to closely monitor, as the patient is immunosuppressed, he is at increased risk for infection by both common and opportunistic organisms. 4. Diabetes. Continue the patient on his home regimen with close monitoring of his blood glucose levels. 5. Diet: Diabetic, cardiac, renal. 6. Activity: As tolerated. 7. Deep venous thrombosis prophylaxis: Heparin. 8. Admit the patient on observation status. MTDD
[2017-07-09] MEDS: Heparin 5,000 UNITS/ML VIAL SC SCH ×3 (08:36→20:52)
[2017-07-09] MEDS: Meloxicam 15 MG TAB PO SCH (08:37)
[2017-07-09] MEDS: Tacrolimus 1 MG CAP PO SCH ×2 (08:37→20:53)
[2017-07-09] MEDS: Amlodipine 5 MG TAB PO SCH (08:37)
[2017-07-09] MEDS: Magnesium Oxide 400 MG TAB PO SCH (08:37)
[2017-07-09] MEDS: hydrALAZINE 25 MG TAB PO SCH ×4 (08:37→20:52)
[2017-07-09] MEDS: glipiZIDE 10 MG TAB PO SCH ×2 (08:37→16:28)
[2017-07-09] MEDS: NIFEdipine XL 60 MG TAB PO SCH (08:37)
[2017-07-09] MEDS: Famotidine 20 MG TAB PO SCH (08:37)
[2017-07-09] MEDS ORDERED: MYCOPHENOLATE SODIUM 360 MG PO SCH (11:00)
[2017-07-09] MEDS: HumaLOG 300 UNITS/3 ML VIAL SC PRN ×2 (11:16→17:44)
[2017-07-09] MEDS: Furosemide 20 MG/2 ML VIAL SLOW IVP SCH (13:29)
[2017-07-09] MEDS: Atorvastatin Calcium 10 MG TAB PO SCH (20:51)
[2017-07-09] MEDS: Insulin Glargine 28 UNITS in Pre-Filled Syringe 1 EACH SC SCH (20:51)
[2017-07-09] MEDS: Losartan 25 MG TAB PO SCH (20:52)
[2017-07-09] MEDS: MYCOPHENOLATE SODIUM 360 MG PO SCH (20:53)
[2017-07-09] MEDS ORDERED: INSULIN GLARGINE HUM REC ANLOG 28 UNIT SQ SCH (21:00)
[2017-07-09] MEDS ORDERED: ALPRAZolam 0.25 MG TAB PO PRN (23:48)
[2017-07-10] MEDS: Acetaminophen 325 MG TAB PO PRN ×2 (00:04→04:35)
[2017-07-10 05:05] LABS: #Lymphocytes 1.1 thou/uL (1.20-3.40); #Monocytes 0.8 thou/uL (0.11-0.59); #Neutrophils 12.5 thou/uL (1.40-6.50); %Basophils 0.1 % (0.0-1.0); %Eosinophils 0.1 % (0.0-10.0); %Lymphocytes 7.3 % (21.0-51.0); %Monocytes 5.6 % (0.0-10.0); %Neutrophils 86.9 % (42.0-75.0); Hemoglobin 6.8 g/dL (14.0-18.0); Mean Corpuscular HGB CONC 32.6 g/dL (32.0-36.0); Mean Corpuscular Hemoglobin 28.7 pg (27.0-31.0); Mean Corpuscular Volume 88.2 fl (80.0-94.0); Mean Platelet Volume 7.4 fL (7.4-10.4); Platelet Count 216 thou/uL (130-400); RBC Distribution Width 14.2 % (11.5-14.5); Red Blood Cell (RBC) Count 2.37 mill/uL (4.70-6.10); White Blood Cell (WBC) Count 14.4 thou/uL (4.8-10.8)
[2017-07-10 05:14] LABS: Anion Gap 11 mmol/L (10-20); BUN (Urea Nitrogen) 35 mg/dL (8.4-25.7); Calc. Creatinine Clearance 63 mL/min (70-130); Calcium 8.2 mg/dL (7.8-10.44); Carbon Dioxide 21 mmol/L (23-31); Chloride 107 mmol/L (98-107); Estimated GFR-MDRD 49; Glucose 152 mg/dL (80-115); Potassium 4.8 mmol/L (3.5-5.1); Sodium 134 mmol/L (136-145)
[2017-07-10] MEDS: Furosemide 20 MG/2 ML VIAL SLOW IVP SCH ×2 (06:13→14:56)
[2017-07-10] MEDS: Meloxicam 15 MG TAB PO SCH (07:50)
[2017-07-10] MEDS: glipiZIDE 10 MG TAB PO SCH ×2 (07:50→17:25)
[2017-07-10] MEDS: Amlodipine 5 MG TAB PO SCH (09:39)
[2017-07-10] MEDS: Famotidine 20 MG TAB PO SCH (09:39)
[2017-07-10] MEDS: hydrALAZINE 25 MG TAB PO SCH ×4 (09:39→21:28)
[2017-07-10] MEDS: Magnesium Oxide 400 MG TAB PO SCH (09:40)
[2017-07-10] MEDS: NIFEdipine XL 60 MG TAB PO SCH (09:40)
[2017-07-10] MEDS: Tacrolimus 1 MG CAP PO SCH ×2 (09:40→21:30)
[2017-07-10] MEDS: MYCOPHENOLATE SODIUM 360 MG PO SCH ×2 (09:41→21:30)
[2017-07-10 09:54] LABS: Bilirubin Negative (Negative); Blood, Urine Negative (Negative); Clarity CLEAR (Clear); Glucose, Urine (Dipstick) Negative (Negative); Leukocyte Negative (Negative); Nitrite Negative (Negative); Protein, Urine (Dipstick) Negative (Neg-Trace); Specific Gravity, Urine 1.019 (1.002-1.036); Urobilinogen 0.2 mg/dL (0.2-1.0); pH, Urine 5.5 (5.0-9.0)
--- NOTE | 2017-07-10 10:02 | PDOC.PN ---
- Subjective Encounter Start Date: 07/10/17 Encounter Start Time: 10:01 Patient is feeling a little better. He was placed on O2 secondary to "congestion". He still has a "dry" cough, but it is improved. He has some sinus congestion, but no headache. Denies any other symptoms. No GI symptoms or integumentary symptoms. - Objective Resuscitation Status: Resuscitation Status FULL:Full Resuscitation MAR Reviewed: Yes Vital Signs & Weight: Vital Signs (12 hours) Temp Pulse Resp BP BP Pulse Ox 07/10/17 09:40 68 121/59 L 07/10/17 09:39 68 121/59 L 07/10/17 07:45 98.1 F 68 24 H 07/10/17 07:38 98.1 F 68 24 H 121/59 L 92 L 07/10/17 04:00 99.0 F 68 22 H 119/58 L 98 07/10/17 03:20 97.9 F 07/10/17 02:17 99.9 F H 07/10/17 01:04 99.9 F H 07/10/17 00:00 98 07/09/17 23:58 102.3 F H 78 24 H 157/70 H 97 Weight Weight 188 lb 8 oz I&O: 07/09/17 07/10/17 07/11/17 06:59 06:59 06:59 Intake Total 1022 Output Total 955 Balance 67 Result Diagrams: 07/10/17 04:30 07/10/17 04:30 Additional Labs: Accuchecks 07/10/17 07/09/17 07/09/17 06:17 20:48 17:45 POC Glucose 147 H 215 H 271 H 07/09/17 11:14 POC Glucose 262 H Phys Exam - Physical Examination HEENT: PERRLA, moist MMs, oral pharynx no lesions Neck: no nodes, no JVD Bibasilar rales Cardiovascular: RRR, no significant murmur Gastrointestinal: soft, non-tender, no distention, positive bowel sounds Musculoskeletal: no edema, pulses present, edema present Neurological: non-focal Skin: no rash, normal turgor, cap refill <2 seconds Dx/Plan (1) Fever Code(s): R50.9 - FEVER, UNSPECIFIED Status: Acute (2) Sinusitis Code(s): J32.9 - CHRONIC SINUSITIS, UNSPECIFIED Status: Acute (3) Acute diastolic (congestive) heart failure Code(s): I50.31 - ACUTE DIASTOLIC (CONGESTIVE) HEART FAILURE Status: Acute (4) Bradycardia Code(s): R00.1 - BRADYCARDIA, UNSPECIFIED Status: Acute (5) CHF exacerbation Code(s): I50.9 - HEART FAILURE, UNSPECIFIED Status: Acute Comment: Continue diuretics. Awaiting 2D echo report from outside facility. (6) Diabetes type 2, controlled Code(s): E11.9 - TYPE 2 DIABETES MELLITUS WITHOUT COMPLICATIONS Status: Chronic Comment: Continue accuchecks, insulin sliding scale (7) Dyslipidemia Code(s): E78.5 - HYPERLIPIDEMIA, UNSPECIFIED Status: Chronic Comment: continue statin (8) Hypertension Code(s): I10 - ESSENTIAL (PRIMARY) HYPERTENSION Status: Chronic Comment: Monitor vital signs, titrate antihypertensives as needed (9) Renal transplant, status post Code(s): Z94.0 - KIDNEY TRANSPLANT STATUS Status: Chronic Comment: continue mycophenolate, tacrolimus - Plan * . He is subjectively better, but continues to have cough, sinus congestion symptoms and documented fever. Blood cultures pending UA, repeat CXR. CT sinuses. Broad spectrum coverage with Vancomycin and Zosyn. Pharmacy to adjust based on renal function. Continue with his home meds for HTN, DM. Patient is high risk secondary to immunosuppression related to the renal transplant performed at [facility].
[2017-07-10] MEDS: Vancomycin HCl 750 MG in Sodium Chloride 0.9% 250 ML 250 ML IVPB SCH (10:50)
--- NOTE | 2017-07-10 12:06 | RAD ---
TWO VIEWS OF THE CHEST: DATE: 06/30/17. COMPARISON: 07/08/17. HISTORY: Fever. FINDINGS: There are patchy areas of new airspace disease in the mid left lung zone and the left lung base. The re is no pneumothorax or pleural fluid. Cardiac silhouette is prominent. IMPRESSION: Focal areas of airspace disease noted in the mid left lung zone and the left lung base, suspicious fo r infectious pneumonitis or aspiration. Followup imaging following treatment to document resolution advised. POS: [facility]
--- NOTE | 2017-07-10 12:14 | CT ---
SINUS CT WITHOUT CONTRAST: HISTORY: Fever. Flu-like symptoms. COMPARISON: None. TECHNIQUE: Sinus CT is performed without contrasted. Reformatted images are submitted for interpretation. FINDINGS: Chronic changes to the left globe. Right ocular lens implant is noted. There is symmetric attenuati on of the optic nerve and ocular rectus muscles. Retrobulbar fat is preserved. Mucosal disease invo lving bilateral ethmoid air cells, sphenoid sinuses, frontal sinuses, and air fluid levels and mucosa l thickening in the maxillary sinuses. No destructive erosive change in the osseous margin of the si nuses. There are no maxillofacial fractures. The nasal septum is intact. There is soft tissue density in bilateral osteomeatal complexes. Visualized mandible and maxilla are unremarkable. Adequate aeration of the sinuses and mastoid air c ells. IMPRESSION: Extensive paranasal sinus disease. No destructive or erosive changes in the osseous margin of the si nuses. POS: [facility]
[2017-07-10] MEDS: HumaLOG 300 UNITS/3 ML VIAL SC PRN ×2 (12:30→17:28)
[2017-07-10] MEDS: Piperacillin/Tazobactam 3.375 GM in Sodium Chloride 0.9% 100 ML IVPB SCH ×3 (12:33→23:45)
[2017-07-10 15:04] LABS: Hemoglobin 7.6 g/dL (14.0-18.0)
[2017-07-10] MEDS: Benzonatate 100 MG CAP PO PRN (17:24)
[2017-07-10] MEDS: guaiFENesin ER 600 MG TAB PO PRN (17:25)
[2017-07-10] MEDS: Losartan 25 MG TAB PO SCH (21:29)
[2017-07-10] MEDS: Atorvastatin Calcium 10 MG TAB PO SCH (21:30)
[2017-07-10] MEDS: Insulin Glargine 28 UNITS in Pre-Filled Syringe 1 EACH SC SCH (21:34)
[2017-07-11 05:23] LABS: #Lymphocytes 1.2 thou/uL (1.20-3.40); #Neutrophils 10.9 thou/uL (1.40-6.50); %Basophils 0.1 % (0.0-1.0); %Eosinophils 0.3 % (0.0-10.0); %Monocytes 7.5 % (0.0-10.0); %Neutrophils 83.1 % (42.0-75.0); Hemoglobin 6.4 g/dL (14.0-18.0); Mean Corpuscular HGB CONC 32.6 g/dL (32.0-36.0); Mean Corpuscular Hemoglobin 28.8 pg (27.0-31.0); Mean Corpuscular Volume 88.3 fl (80.0-94.0); Mean Platelet Volume 7.4 fL (7.4-10.4); Platelet Count 202 thou/uL (130-400); RBC Distribution Width 14.2 % (11.5-14.5); Red Blood Cell (RBC) Count 2.23 mill/uL (4.70-6.10); White Blood Cell (WBC) Count 13.1 thou/uL (4.8-10.8)
[2017-07-11] MEDS: Piperacillin/Tazobactam 3.375 GM in Sodium Chloride 0.9% 100 ML IVPB SCH ×4 (05:38→23:16)
[2017-07-11 05:50] LABS: Anion Gap 10 mmol/L (10-20); BUN (Urea Nitrogen) 45 mg/dL (8.4-25.7); Calc. Creatinine Clearance 52 mL/min (70-130); Calcium 8.1 mg/dL (7.8-10.44); Carbon Dioxide 21 mmol/L (23-31); Chloride 106 mmol/L (98-107); Estimated GFR-MDRD 39; Glucose 168 mg/dL (80-115); Potassium 4.4 mmol/L (3.5-5.1); Sodium 133 mmol/L (136-145)
[2017-07-11] MEDS: Furosemide 20 MG/2 ML VIAL SLOW IVP SCH ×2 (06:26→13:52)
[2017-07-11] MEDS: Meloxicam 15 MG TAB PO SCH (07:49)
[2017-07-11] MEDS: Benzonatate 100 MG CAP PO PRN (07:49)
[2017-07-11] MEDS: glipiZIDE 10 MG TAB PO SCH ×2 (07:49→16:32)
[2017-07-11] MEDS: guaiFENesin ER 600 MG TAB PO PRN ×2 (07:49→23:16)
[2017-07-11] MEDS: Magnesium Oxide 400 MG TAB PO SCH (10:03)
[2017-07-11] MEDS: hydrALAZINE 25 MG TAB PO SCH ×4 (10:03→19:56)
[2017-07-11] MEDS: MYCOPHENOLATE SODIUM 360 MG PO SCH ×2 (10:03→19:57)
[2017-07-11] MEDS: Amlodipine 5 MG TAB PO SCH (10:03)
[2017-07-11] MEDS: Vancomycin HCl 750 MG in Sodium Chloride 0.9% 250 ML 250 ML IVPB SCH (10:04)
[2017-07-11] MEDS: Famotidine 20 MG TAB PO SCH (10:04)
[2017-07-11] MEDS: NIFEdipine XL 60 MG TAB PO SCH (10:04)
[2017-07-11] MEDS: Tacrolimus 1 MG CAP PO SCH ×2 (10:04→19:56)
[2017-07-11] MEDS: HumaLOG 300 UNITS/3 ML VIAL SC PRN (14:08)
--- NOTE | 2017-07-11 14:32 | PDOC.PN ---
- Subjective Encounter Start Date: 07/11/17 Encounter Start Time: 11:00 Patient ambulated around the floor yesterday without much difficulty. Had difficulty sleeping last night in spite of using a sleep aid. Sleepy this morning. Denies any difficulty with breathing. Generally fatigued and feeling weak. - Objective Vital Signs & Weight: Vital Signs (12 hours) Temp Pulse Pulse Resp BP BP Pulse Ox 07/11/17 13:57 98.0 F 62 16 116/58 L 92 L 07/11/17 11:20 98.6 F 59 L 16 114/54 L 91 L 07/11/17 08:00 98.6 F 68 18 07/11/17 07:36 98.6 F 68 18 120/57 L 90 L 07/11/17 03:35 98.7 F 71 16 120/54 L 91 L Weight Weight 192 lb I&O: 07/10/17 07/11/17 07/12/17 06:59 06:59 06:59 Intake Total 1580 0 Output Total 900 Balance 680 0 Result Diagrams: 07/11/17 04:50 07/11/17 04:50 Additional Labs: Accuchecks 07/11/17 07/11/17 07/11/17 14:10 10:19 05:47 POC Glucose 203 H 199 H 177 H 07/10/17 07/10/17 20:53 17:30 POC Glucose 230 H 222 H Phys Exam - Physical Examination Constitutional: NAD HEENT: PERRLA, moist MMs, oral pharynx no lesions Neck: no nodes, no JVD Respiratory: no wheezing Right sided rales. Cardiovascular: no significant murmur Gastrointestinal: soft, non-tender, no distention Musculoskeletal: no edema Psychiatric: normal affect Dx/Plan (1) Pneumonia Code(s): J18.9 - PNEUMONIA, UNSPECIFIED ORGANISM Status: Acute Qualifiers: Pneumonia type: due to unspecified organism Laterality: left Lung location: lower lobe of lung Qualified Code(s): J18.1 - Lobar pneumonia, unspecified organism Plan: Continue with broad spectrum coverage given his immunosuppression and the combination of pansinusitis and pneumonia. May be able to change to oral Levaquin as early as tomorrow. Fever is much improved/resolved. (2) Sinusitis Code(s): J32.9 - CHRONIC SINUSITIS, UNSPECIFIED Status: Acute Qualifiers: Sinusitis location: pansinusitis Chronicity: acute Plan: Continue with Vanc/Zosyn due to immunosuppression. Continue guaifenesin. (3) Anemia Code(s): D64.9 - ANEMIA, UNSPECIFIED Status: Acute Qualifiers: Anemia type: unspecified type Qualified Code(s): D64.9 - Anemia, unspecified Plan: Hemoccult negative. Likley related to chronic renal disease. Transfusing one unit today. Appears as though he is symptomatic. (4) Acute diastolic (congestive) heart failure Code(s): I50.31 - ACUTE DIASTOLIC (CONGESTIVE) HEART FAILURE Status: Acute Plan: Suspect this was not significantly present. Likely was pneumonia that was developing. His BNP is only very modestly elevated. No indication for echo. (5) Bradycardia Code(s): R00.1 - BRADYCARDIA, UNSPECIFIED Status: Resolved (6) CHF exacerbation Code(s): I50.9 - HEART FAILURE, UNSPECIFIED Status: Ruled-out Plan: This was initially a concern, but it appears to be pneumonia rather than CHF. No indication for echo. Comment: Continue diuretics. Awaiting 2D echo report from outside facility. (7) Diabetes type 2, controlled Code(s): E11.9 - TYPE 2 DIABETES MELLITUS WITHOUT COMPLICATIONS Status: Chronic Comment: Continue accuchecks, insulin sliding scale (8) Dyslipidemia Code(s): E78.5 - HYPERLIPIDEMIA, UNSPECIFIED Status: Chronic Comment: continue statin (9) Hypertension Code(s): I10 - ESSENTIAL (PRIMARY) HYPERTENSION Status: Chronic Comment: Monitor vital signs, titrate antihypertensives as needed (10) Renal transplant, status post Code(s): Z94.0 - KIDNEY TRANSPLANT STATUS Status: Chronic Comment: continue mycophenolate, tacrolimus (11) Fever Code(s): R50.9 - FEVER, UNSPECIFIED Status: Resolved (12) Prerenal azotemia Code(s): R79.89 - OTHER SPECIFIED ABNORMAL FINDINGS OF BLOOD CHEMISTRY Status : Acute (13) Prerenal azotemia Code(s): R79.89 - OTHER SPECIFIED ABNORMAL FINDINGS OF BLOOD CHEMISTRY Status : Acute Plan: Initially appeared to have CHF exac, but it appears to be related to pneumonia. Will rehydrate gently. - Plan * If he does well with the transfusion and remains afebrile, consider changing to oral medications and possible discharge tomrrow.
[2017-07-11] MEDS: Sodium Chloride 0.9% 1,000 ML IV SCH (16:29)
[2017-07-11] MEDS: Atorvastatin Calcium 10 MG TAB PO SCH (19:56)
[2017-07-11] MEDS: Insulin Glargine 28 UNITS in Pre-Filled Syringe 1 EACH SC SCH (19:56)
[2017-07-11] MEDS: Losartan 25 MG TAB PO SCH (19:56)
[2017-07-12 05:03] LABS: #Eosinphils 0.1 thou/uL (0.0-0.7); #Lymphocytes 1.2 thou/uL (1.20-3.40); #Monocytes 0.8 thou/uL (0.11-0.59); #Neutrophils 8.1 thou/uL (1.40-6.50); %Basophils 0.2 % (0.0-1.0); %Eosinophils 0.8 % (0.0-10.0); %Monocytes 7.9 % (0.0-10.0); %Neutrophils 79.2 % (42.0-75.0); Hemoglobin 7.5 g/dL (14.0-18.0); Mean Corpuscular HGB CONC 31.8 g/dL (32.0-36.0); Mean Corpuscular Hemoglobin 27.7 pg (27.0-31.0); Mean Platelet Volume 7.3 fL (7.4-10.4); Platelet Count 231 thou/uL (130-400); RBC Distribution Width 14.8 % (11.5-14.5); White Blood Cell (WBC) Count 10.2 thou/uL (4.8-10.8)
[2017-07-12] MEDS: Sodium Chloride 0.9% 1,000 ML IV SCH ×3 (05:12→17:48)
[2017-07-12] MEDS: Piperacillin/Tazobactam 3.375 GM in Sodium Chloride 0.9% 100 ML IVPB SCH ×3 (05:12→17:54)
[2017-07-12] MEDS: Furosemide 20 MG/2 ML VIAL SLOW IVP SCH (05:12)
[2017-07-12 05:24] LABS: Anion Gap 11 mmol/L (10-20); BUN (Urea Nitrogen) 54 mg/dL (8.4-25.7); Calc. Creatinine Clearance 47 mL/min (70-130); Calcium 8.4 mg/dL (7.8-10.44); Carbon Dioxide 21 mmol/L (23-31); Chloride 107 mmol/L (98-107); Estimated GFR-MDRD 34; Glucose 135 mg/dL (80-115); Potassium 4.2 mmol/L (3.5-5.1); Sodium 135 mmol/L (136-145)
[2017-07-12] MEDS ORDERED: Sodium Chloride 0.9% 250 ML IV SCH (08:00)
[2017-07-12] MEDS: glipiZIDE 10 MG TAB PO SCH ×2 (08:06→17:53)
[2017-07-12] MEDS: Meloxicam 15 MG TAB PO SCH (08:07)
[2017-07-12] MEDS: hydrALAZINE 25 MG TAB PO SCH ×4 (08:09→22:08)
[2017-07-12] MEDS: Amlodipine 5 MG TAB PO SCH (08:09)
[2017-07-12] MEDS: NIFEdipine XL 60 MG TAB PO SCH (08:10)
[2017-07-12] MEDS: Magnesium Oxide 400 MG TAB PO SCH (08:10)
[2017-07-12] MEDS: MYCOPHENOLATE SODIUM 360 MG PO SCH ×2 (08:11→22:39)
[2017-07-12] MEDS: Famotidine 20 MG TAB PO SCH (08:11)
[2017-07-12] MEDS: Acetaminophen 325 MG TAB PO PRN (08:11)
[2017-07-12] MEDS: Benzonatate 100 MG CAP PO PRN ×2 (09:48→17:49)
[2017-07-12] MEDS: Vancomycin HCl 750 MG in Sodium Chloride 0.9% 250 ML 250 ML IVPB SCH (09:50)
--- NOTE | 2017-07-12 10:31 | CON ---
DATE OF CONSULTATION: 07/12/2017 HISTORY OF PRESENT ILLNESS: Mr. Bhat is a 61-year-old male who is status post cadaveric renal transplant - back in 2009 and was admitted due to persistent shortness of breath. He was also noted to be febrile in the last 2 days. We are now being consulted for his acute kidney injury on to p of his chronic renal failure/status post-renal transplantation. According to the family, the patie nt has had chronic shortness of breath. He has been evaluated by Dr. Cote from [facility] and the feeling is that he does not have any intrinsic cardiac problem - this according to the family. However, the shortness of breath is persistent. An initial chest x-ray done on 07/09/2017 s howed mild congestive heart failure. However, a repeat chest x-ray two days later showed a possibili ty of infectious pneumonitis. He was admitted due to the fever and persistent shortness of breath. We are now being consulted due to his worsening renal dysfunction. Please note, this patient has bee n on losartan and IV diuretics. Decreased visual acuity. Empiric volume repletion is now being done with this patient. REVIEW OF SYSTEMS: Positive for fever, positive for mild shortness of breath. No chest pain, no [place], no vomiting, no diarrhea, no dysuria. Decreased visual acuity. Appetite decreased. Energy lev el is decreased. No joint pains, no headache, no sore throat. Mild sinus pain. No dysuria, no júnior tochezia, no melena, no hematemesis. MEDICATIONS: Currently on Tylenol 650 mg q.4 hours p.r.n., Norvasc 5 mg daily, Xanax 0.25 mg bedtime p.r.n., aspirin 81 mg tab once a day, Lipitor 10 mg tab at bedtime, Tessalon Perles 100 mg p.o. t.i. d. p.r.n., glipizide 10 mg p.o. b.i.d., Glargine insulin 28 units subcu q.p.m., Humalog sliding scale , magnesium oxide 400 mg daily, meloxicam 15 mg daily, nifedipine XL 60 mg daily, Protonix 40 mg tab once a day, Myfortic 360 mg q.12 hours, Zosyn 3.375 grams IV q.6 hours, normal saline 125 mL per hour , Prograf 1 mg p.o. b.i.d., vancomycin 750 mg IV q.24 hours. PAST MEDICAL HISTORY: 1. Chronic blindness secondary to diabetic retinopathy. 2. Type 2 diabetes mellitus. 3. CMV antibody positive, status post ESRD from diabetic nephropathy. 4. Hypertension. 5. Hyperlipidemia. 6. ? of congestive heart failure. 7. History of hypertension. PAST SURGICAL HISTORY: 1. Status post cadaveric renal transplant. 2. Status post AV fistula placement. 3. Status post cuffed hemodialysis catheter placement. 4. Status post left eye surgery. 5. Status post foot surgery. ALLERGIES: None. TRAUMA: None. IMMUNIZATIONS: Up to date. HOSPITALIZATIONS: Please see past medical history. FAMILY HISTORY: No family history of ESRD. SOCIAL HISTORY: The patient is and lives in [place]. He is retired. Several children. Histo ry of decreased visual acuity. Currently, no history of smoking. No IV drug abuse. Status post blo od transfusion. Alcohol none. PHYSICAL EXAMINATION: VITAL SIGNS: Blood pressure is 135/64 with a heart rate of 65, respiratory rate 19, temperature 97.8 , pulse ox 95%. GENERAL: Awake, alert, comfortable, not in distress, obese. SKIN: Adequate turgor. HEENT: The patient has slightly pale conjunctivae, anicteric sclerae. NECK: No neck mass, no carotid bruits, no JVD. CHEST: No deformities. LUNGS: Decreased breath sounds. HEART: Normal sinus rhythm. No murmur, no gallops, no rubs. ABDOMEN: Globular, soft, nontender, no masses. EXTREMITIES: No edema, no deformities. LABORATORY DATA: Of 07/12/2017, white count 10.2, hemoglobin 7.5, hematocrit 23.5, sodium 135, potas sium 4.2, chloride 107, carbon dioxide 21, BUN 54, creatinine 2.02, glucose 135, calcium 8.4. Urinalysis of 07/10/2017 was relatively benign. IMAGING: Chest x-ray of 07/10/[address] scan of the sinuses shows evidence of sinusi tis. ASSESSMENT AND PLAN: 1. Acute kidney injury on top of his chronic renal failure - consider hemodynamically mediated renal dysfunction. The urinalysis was relatively benign. The patient has been on diuretics, NSAIDs, and ARB. The plan is to hold off the diuretics, NSAIDs and ARB. I agree with empiric volume repletion. We will continue current immunosuppressive regimen. No changes to be made with the mycophenolate do se as well as the tacrolimus dosing. Awaiting tacrolimus level. 2. Pneumonia - currently on IV antibiotics. 3. Anemia, on p.r.n. blood transfusion. The patient has a history of intake of Mobic and I would rosales ggest we rule him out for a GI bleed. 4. Status post cadaveric renal transplant/chronic renal failure - baseline creatinine is noted to be at about 1.0 during the last clinic visit. I suspect previously may be a reflection of the lo sartan and Mobic dosing. Continue current immunosuppressive regimen. We will recheck lincoln lockwood and Funmi ROACH in a.m. Thank you for the consult. We will continue to follow.
[2017-07-12] MEDS: Tacrolimus 1 MG CAP PO SCH ×2 (13:28→22:08)
--- NOTE | 2017-07-12 16:32 | PDOC.PN ---
- Subjective Encounter Start Date: 07/12/17 Encounter Start Time: 08:40 Continues to do well. Ambulating without difficulty. He denies any SOB. Still reports significant issues with sleeping at night. - Objective Vital Signs & Weight: Vital Signs (12 hours) Temp Pulse Pulse Resp BP BP Pulse Ox 07/12/17 13:38 97.5 F L 60 16 121/58 L 97 07/12/17 12:00 97.5 F L 64 20 114/56 L 85 L 07/12/17 08:05 97.5 F L 65 16 135/64 95 Weight Weight 192 lb I&O: 07/11/17 07/12/17 07/13/17 06:59 06:59 06:59 Intake Total 1580 2100 0 Output Total 900 450 Balance 680 1650 0 Result Diagrams: 07/12/17 04:33 07/12/17 04:33 Additional Labs: Accuchecks 07/12/17 07/12/17 07/11/17 11:17 06:15 21:06 POC Glucose 111 H 121 H 240 H 07/11/17 16:51 POC Glucose 157 H Phys Exam - Physical Examination Constitutional: NAD HEENT: PERRLA, oral pharynx no lesions Respiratory: no wheezing Slight rales left, but improved. Cardiovascular: RRR, no significant murmur Gastrointestinal: soft, non-tender, no distention, positive bowel sounds Musculoskeletal: no edema Neurological: non-focal Psychiatric: normal affect Dx/Plan (1) Pneumonia Code(s): J18.9 - PNEUMONIA, UNSPECIFIED ORGANISM Status: Acute Qualifiers: Pneumonia type: due to unspecified organism Laterality: left Lung location: lower lobe of lung Qualified Code(s): J18.1 - Lobar pneumonia, unspecified organism Plan: Continue with broad spectrum abx as long as he is here. Will change to oral levaquin when ready for discharge. (2) Sinusitis Code(s): J32.9 - CHRONIC SINUSITIS, UNSPECIFIED Status: Acute Qualifiers: Sinusitis location: pansinusitis Chronicity: acute Plan: Continue abx, guaifenesin. (3) Anemia Code(s): D64.9 - ANEMIA, UNSPECIFIED Status: Acute Qualifiers: Anemia type: unspecified type Qualified Code(s): D64.9 - Anemia, unspecified Plan: Will give an additional unit of PRBC's today given his worsening pre-renal azotemia. (4) Acute diastolic (congestive) heart failure Code(s): I50.31 - ACUTE DIASTOLIC (CONGESTIVE) HEART FAILURE Status: Ruled- out (5) Diabetes type 2, controlled Code(s): E11.9 - TYPE 2 DIABETES MELLITUS WITHOUT COMPLICATIONS Status: Chronic Comment: Continue accuchecks, insulin sliding scale (6) Dyslipidemia Code(s): E78.5 - HYPERLIPIDEMIA, UNSPECIFIED Status: Chronic Comment: continue statin (7) Hypertension Code(s): I10 - ESSENTIAL (PRIMARY) HYPERTENSION Status: Chronic Comment: Monitor vital signs, titrate antihypertensives as needed (8) Renal transplant, status post Code(s): Z94.0 - KIDNEY TRANSPLANT STATUS Status: Chronic Comment: continue mycophenolate, tacrolimus (9) Fever Code(s): R50.9 - FEVER, UNSPECIFIED Status: Resolved (10) Prerenal azotemia Code(s): R79.89 - OTHER SPECIFIED ABNORMAL FINDINGS OF BLOOD CHEMISTRY Status : Acute Plan: Slightly increased today. Fluids, blood. (11) Prerenal azotemia Code(s): R79.89 - OTHER SPECIFIED ABNORMAL FINDINGS OF BLOOD CHEMISTRY Status : Acute - Plan * Consulted Nephrology. Will see how he responds to the fluids and blood. May be able to DC tomorrow.
[2017-07-12] MEDS: Atorvastatin Calcium 10 MG TAB PO SCH (22:08)
[2017-07-12] MEDS: Insulin Glargine 28 UNITS in Pre-Filled Syringe 1 EACH SC SCH (22:08)
[2017-07-12] MEDS ORDERED: Mycophenolate ER 180 MG TAB PO SCH (22:30)
[2017-07-13] MEDS: Piperacillin/Tazobactam 3.375 GM in Sodium Chloride 0.9% 100 ML IVPB SCH ×4 (01:01→18:10)
[2017-07-13] MEDS: Sodium Chloride 0.9% 1,000 ML IV SCH ×2 (01:01→10:48)
[2017-07-13 05:15] LABS: #Eosinphils 0.2 thou/uL (0.0-0.7); #Lymphocytes 1.2 thou/uL (1.20-3.40); #Monocytes 0.9 thou/uL (0.11-0.59); %Basophils 0.4 % (0.0-1.0); %Eosinophils 1.6 % (0.0-10.0); %Lymphocytes 12.1 % (21.0-51.0); %Monocytes 8.3 % (0.0-10.0); %Neutrophils 77.6 % (42.0-75.0); Hemoglobin 8.2 g/dL (14.0-18.0); Mean Corpuscular HGB CONC 33.5 g/dL (32.0-36.0); Mean Corpuscular Hemoglobin 29.5 pg (27.0-31.0); Mean Corpuscular Volume 87.8 fl (80.0-94.0); Mean Platelet Volume 7.2 fL (7.4-10.4); Platelet Count 263 thou/uL (130-400); RBC Distribution Width 14.6 % (11.5-14.5); Red Blood Cell (RBC) Count 2.77 mill/uL (4.70-6.10); White Blood Cell (WBC) Count 10.3 thou/uL (4.8-10.8)
[2017-07-13 05:29] LABS: Anion Gap 10 mmol/L (10-20); BUN (Urea Nitrogen) 49 mg/dL (8.4-25.7); Calc. Creatinine Clearance 56 mL/min (70-130); Calcium 8.5 mg/dL (7.8-10.44); Carbon Dioxide 20 mmol/L (23-31); Chloride 112 mmol/L (98-107); Estimated GFR-MDRD 42; Glucose 78 mg/dL (80-115); Potassium 4.2 mmol/L (3.5-5.1); Sodium 138 mmol/L (136-145)
[2017-07-13] MEDS: Amlodipine 5 MG TAB PO SCH (08:22)
[2017-07-13] MEDS: hydrALAZINE 25 MG TAB PO SCH ×4 (08:22→20:39)
[2017-07-13] MEDS: glipiZIDE 10 MG TAB PO SCH ×2 (08:22→17:17)
[2017-07-13] MEDS: NIFEdipine XL 60 MG TAB PO SCH (08:23)
[2017-07-13] MEDS: Magnesium Oxide 400 MG TAB PO SCH (08:23)
[2017-07-13] MEDS: Tacrolimus 1 MG CAP PO SCH ×2 (08:24→20:40)
[2017-07-13] MEDS: MYCOPHENOLATE SODIUM 360 MG PO SCH ×2 (08:25→20:39)
--- NOTE | 2017-07-13 08:44 | PRG ---
DATE OF SERVICE: 07/13/2017 SUBJECTIVE: Mr. Bhat is a 61-year-old male status post cadaveric renal transplant, admit leah for an acute kidney injury, also with concomitant pneumonia. Renal Service is following this patient for the acute kidney injury and renal transplantation. He arthur s been empirically volume repleted. His nephrotoxic drugs - diuretics NSAIDs and ARB have all been d iscontinued. There is already a slight improvement with the renal function. Patient is also breathi ng better. Please note he is receiving IV antibiotics for presumed pneumonia: No other complaints t jason. PHYSICAL EXAMINATION: VITAL SIGNS: Blood pressure is 155/69, heart rate 74, respiratory rate 18, temperature 97.8, pulse o x 92%. GENERAL: Patient is noted to be awake, alert, sitting comfortable, not in distress, obese. SKIN: Adequate turgor. HEENT: Slightly pale conjunctivae, anicteric sclerae. NECK: No neck mass, no carotid bruits, no JVD. CHEST: No deformities. LUNGS: Decreased breath sounds. No wheezing. HEART: Normal sinus rhythm. No murmur, no gallops, no rubs. ABDOMEN: Globular, soft, nontender, no masses. EXTREMITIES: No edema, no deformities. MEDICATIONS: Medications of 07/13/2017 was reviewed. LABORATORY DATA: Laboratories of 07/13/2017, white count 10.2, hemoglobin 8.2. Sodium 138, potassiu m 4.2, chloride 112, carbon dioxide 20, BUN 49, creatinine 1.67, glucose 78, calcium 8.5. ASSESSMENT AND PLAN: 1. Acute kidney injury secondary to a hemodynamically mediated renal dysfunction. Creatinine is now noted to be improved from 2.0 to most recent value of 1.67. Continue gentle volume repletion. Cont inue to hold off any ARB, diuretics and/or NSAIDs. 2. Anemia, status post blood transfusion, much improved. 3. Pneumonia -- on empiric IV antibiotics. Agree with current management. Recheck base met and CBC in a.m.
[2017-07-13] MEDS ORDERED: Mycophenolate ER 180 MG TAB PO SCH (09:00)
[2017-07-13] MEDS: Famotidine 20 MG TAB PO SCH (09:41)
[2017-07-13] MEDS: guaiFENesin ER 600 MG TAB PO PRN (09:42)
[2017-07-13 09:53] LABS: Vancomycin, Trough 10.4 ug/mL
--- NOTE | 2017-07-13 10:26 | PDOC.PN ---
- Subjective Encounter Start Date: 07/13/17 Encounter Start Time: 10:25 Continues to report that he is doing well. Denies any respiratory difficulties. - Objective Vital Signs & Weight: Vital Signs (12 hours) Temp Pulse Resp BP BP Pulse Ox 07/13/17 08:23 74 07/13/17 08:22 74 07/13/17 08:15 97.8 F 74 18 155/69 H 92 L 07/13/17 03:26 98.2 F 68 19 140/67 94 L Weight Weight 192 lb I&O: 07/12/17 07/13/17 07/14/17 06:59 06:59 06:59 Intake Total 2100 2931 Output Total 450 480 350 Balance 1650 2451 -350 Result Diagrams: 07/13/17 04:36 07/13/17 04:36 Additional Labs: Accuchecks 07/13/17 07/12/17 07/12/17 06:28 20:57 16:47 POC Glucose 66 L 142 H 110 07/12/17 11:17 POC Glucose 111 H Phys Exam - Physical Examination Constitutional: NAD Opaque left iris (Chronic) Neck: no nodes, no JVD Respiratory: no wheezing Scattered bilateral rales. Cardiovascular: RRR, no significant murmur, no rub Gastrointestinal: soft, non-tender, no distention Musculoskeletal: no edema Neurological: non-focal Psychiatric: normal affect Dx/Plan (1) Pneumonia Code(s): J18.9 - PNEUMONIA, UNSPECIFIED ORGANISM Status: Acute Qualifiers: Pneumonia type: due to unspecified organism Laterality: left Lung location: lower lobe of lung Qualified Code(s): J18.1 - Lobar pneumonia, unspecified organism Plan: Repeat CXR today. If ok, will change to po Levaquin. Explained risks. (2) Sinusitis Code(s): J32.9 - CHRONIC SINUSITIS, UNSPECIFIED Status: Acute Qualifiers: Sinusitis location: pansinusitis Chronicity: acute Plan: On IV Abx now. Hope to change to po today. Continue Guaifensin. (3) Anemia Code(s): D64.9 - ANEMIA, UNSPECIFIED Status: Acute Qualifiers: Anemia type: unspecified type Qualified Code(s): D64.9 - Anemia, unspecified Plan: Status post two units PRBC's. Counts are better. Overall color is better. (4) Prerenal azotemia Code(s): R79.89 - OTHER SPECIFIED ABNORMAL FINDINGS OF BLOOD CHEMISTRY Status : Acute Plan: Nephrology following. A little better today with fluids and blood. Recheck in am. (5) Diabetes type 2, controlled Code(s): E11.9 - TYPE 2 DIABETES MELLITUS WITHOUT COMPLICATIONS Status: Chronic Comment: Continue accuchecks, insulin sliding scale (6) Dyslipidemia Code(s): E78.5 - HYPERLIPIDEMIA, UNSPECIFIED Status: Chronic Comment: continue statin (7) Hypertension Code(s): I10 - ESSENTIAL (PRIMARY) HYPERTENSION Status: Chronic Comment: Monitor vital signs, titrate antihypertensives as needed (8) Renal transplant, status post Code(s): Z94.0 - KIDNEY TRANSPLANT STATUS Status: Chronic Comment: continue mycophenolate, tacrolimus (9) Fever Code(s): R50.9 - FEVER, UNSPECIFIED Status: Resolved (10) Prerenal azotemia Code(s): R79.89 - OTHER SPECIFIED ABNORMAL FINDINGS OF BLOOD CHEMISTRY Status : Acute - Plan * Above.
[2017-07-13] MEDS: Vancomycin HCl 750 MG in Sodium Chloride 0.9% 250 ML 250 ML IVPB SCH (10:48)
[2017-07-13] MEDS: Atorvastatin Calcium 10 MG TAB PO SCH (20:39)
[2017-07-13] MEDS: Insulin Glargine 28 UNITS in Pre-Filled Syringe 1 EACH SC SCH (20:39)
[2017-07-14] MEDS: Piperacillin/Tazobactam 3.375 GM in Sodium Chloride 0.9% 100 ML IVPB SCH ×2 (03:18→06:14)
[2017-07-14 05:17] LABS: #Eosinphils 0.2 thou/uL (0.0-0.7); #Lymphocytes 1.1 thou/uL (1.20-3.40); #Neutrophils 9.3 thou/uL (1.40-6.50); %Eosinophils 1.4 % (0.0-10.0); %Lymphocytes 9.3 % (21.0-51.0); %Monocytes 8.8 % (0.0-10.0); %Neutrophils 80.4 % (42.0-75.0); Hemoglobin 8.8 g/dL (14.0-18.0); Mean Corpuscular HGB CONC 32.8 g/dL (32.0-36.0); Mean Corpuscular Hemoglobin 29.4 pg (27.0-31.0); Mean Corpuscular Volume 89.7 fl (80.0-94.0); Mean Platelet Volume 7.2 fL (7.4-10.4); Platelet Count 296 thou/uL (130-400); Red Blood Cell (RBC) Count 2.98 mill/uL (4.70-6.10); White Blood Cell (WBC) Count 11.6 thou/uL (4.8-10.8)
[2017-07-14 05:33] LABS: Anion Gap 13 mmol/L (10-20); BUN (Urea Nitrogen) 30 mg/dL (8.4-25.7); Calc. Creatinine Clearance 85 mL/min (70-130); Calcium 8.7 mg/dL (7.8-10.44); Carbon Dioxide 19 mmol/L (23-31); Chloride 112 mmol/L (98-107); Estimated GFR-MDRD 67; Glucose 109 mg/dL (80-115); Potassium 4.4 mmol/L (3.5-5.1); Sodium 140 mmol/L (136-145)
[2017-07-14] MEDS: guaiFENesin ER 600 MG TAB PO PRN (06:27)
[2017-07-14 08:11] VITALS: BP 185/76; TEMP 98.5
[2017-07-14] MEDS: NIFEdipine XL 60 MG TAB PO SCH (09:28)
[2017-07-14] MEDS: Magnesium Oxide 400 MG TAB PO SCH (09:28)
[2017-07-14] MEDS: Famotidine 20 MG TAB PO SCH (09:28)
[2017-07-14] MEDS: Amlodipine 5 MG TAB PO SCH (09:28)
[2017-07-14] MEDS: MYCOPHENOLATE SODIUM 360 MG PO SCH (09:29)
[2017-07-14] MEDS: hydrALAZINE 25 MG TAB PO SCH (09:29)
[2017-07-14] MEDS: Tacrolimus 1 MG CAP PO SCH (09:29)
[2017-07-14] MEDS: glipiZIDE 10 MG TAB PO SCH (09:29)
[2017-07-14] MEDS: Benzonatate 100 MG CAP PO PRN (09:32)
[2017-07-14] MEDS: Vancomycin HCl 750 MG in Sodium Chloride 0.9% 250 ML 250 ML IVPB SCH (10:03)
--- NOTE | 2017-07-14 10:24 | PRG ---
DATE OF SERVICE: 07/14/2017 RENAL MEDICINE SUBJECTIVE: Mr. Bhat is a 61-year-old male who was admitted for pneumonitis/sinusitis as well as for his acute kidney injury. We were consulted to follow up with his transplant as well as kidney injury. He was felt that he was volume depleted. His medications were also adjusted. His re nal function is much improved and is feeling better. PHYSICAL EXAMINATION: VITAL SIGNS: Blood pressure 185/76, heart rate 76, respiratory rate 16, temperature 98.5, pulse ox 9 5%. GENERAL: Awake, alert, sitting comfortable, obese, not in distress. SKIN: Adequate turgor. HEENT: Pinkish conjunctivae. Anicteric sclerae. NECK: No neck mass, no carotid bruits, no JVD. CHEST: No deformities. LUNGS: Clear breath sounds. No wheezing, no crackles. HEART: Normal sinus rhythm. No murmurs, no gallops, no rubs. ABDOMEN: Globular, soft, nontender. EXTREMITIES: Trace edema. MEDICATIONS: Medications of 07/14/2017 was reviewed. LABORATORY DATA: Laboratories of 07/14/2017; white count 11.6, hemoglobin 8.8. Sodium 140, potassiu m 4.4, chloride 112, carbon dioxide 19, BUN 30, creatinine 1.11, calcium 8.7. ASSESSMENT AND PLAN: 1. Acute kidney injury - hemodynamically mediated renal dysfunction. Much improved with volume repl etion. In addition, adjustment of medications was done. He is off his diuretics. 2. Pneumonitis/sinusitis - much improved status post IV antibiotics. 3. Anemia, stable - status post blood transfusion. Agree with planned discharge. We will follow up this patient [facility].
--- NOTE | 2017-07-14 11:08 | DIS ---
DATE OF ADMISSION: 07/09/2017 DATE OF DISCHARGE: 07/14/2017 DISCHARGE DIAGNOSES: 1. Left-sided pneumonia. 2. Pansinusitis. 3. Anemia. 4. Acute renal insufficiency. 5. Prerenal azotemia. 6. History of renal transplant. 7. Insulin requiring insulin-dependent diabetes. 8. Essential hypertension. HISTORY: The patient is a 61-year-old male who has a history of a renal transplant at [facility] in [facility]. The patient presented to the hospital, generally not feeling well and having some subjective fe vers. There was no specific diagnosis noted at that time. The patient also was reporting some short ness of breath. His initial workup was largely unrevealing with a white count of 11, BUN of 34, crea tinine 1.6 and a chest x-ray which did show some findings "indicative of congestive heart failure" HOSPITAL COURSE: The patient was initially thought to possibly have some congestive heart failure. He was given initial diuresis. Subsequently, he did have a true fever documented. Subsequent workup included a repeat chest x-ray, which actually revealed left-sided infiltrate consistent with pneumon ia. CT scan of the sinuses revealed significant pansinusitis. It is felt that these were likely the source of his symptoms including his shortness of breath and this was not actually related to conges tive heart failure. The patient was started on vancomycin and Zosyn for broad spectrum coverage give n his immunocompromised state and the nature of the infections. His BUN and creatinine actually wors ened initially likely due to some prerenal azotemia. He was also noted to be significantly anemic. He was given some IV fluids and ultimately a transfusion, his hemoglobin was below 7. With the first unit, his hemoglobin only came to 7.5; however, given his risk profile and symptoms, he was given a second unit to help with his renal function. Dr. Vazquez was consulted and agreed with that plan. Ultim ately with the fluids and the hydration, the patient's BUN and creatinine improved significantly. PHYSICAL EXAMINATION: VITAL SIGNS: On the day of discharge the patient's temperature is 98.5, pulse of 76, respirations 16 , O2 sat was 95%, blood pressure was 124/61 up to 185/76. GENERAL: The patient was awake and alert. HEART: Regular rate and rhythm without murmurs. LUNGS: Lungs were clear bilaterally. ABDOMEN: Soft, nontender. EXTREMITIES: Warm and dry. LABORATORY DATA: White count was 11.6, hemoglobin 8.8, platelets 296. His sodium 140, potassium 4.4 , chloride 112, CO2 of 19, BUN 30, creatinine 1.11. DISPOSITION: The patient will be discharged to home. DIET: He is to continue with the diabetic diet and encouraged to push fluids. ACTIVITY: His activity level is as tolerated. DISCHARGE MEDICATIONS: He will continue with his home medications including hydralazine 50 mg p.o. q .i.d., Glucotrol 10 mg b.i.d., Prograf 1 mg b.i.d., omeprazole 1 p.o. daily. Nifedipine 60 mg p.o. e very day, mycophenolate 360 mg b.i.d., Meloxicam 1 p.o. daily, magnesium oxide 400 mg daily, Cozaar 5 0 mg at bedtime, insulin Glargine 28 units q.p.m., Humalog 8 units sliding scale t.i.d., Lasix 20 mg b.i.d., Pepcid 20 daily, Lipitor 20 mg at bedtime, aspirin 81 mg every day, Norvasc 5 mg every day. Additionally, the patient will be prescribed Levaquin 500 mg 1 p.o. daily for an additional 7 days. FOLLOWUP: He is to follow up with Dr. Vazquez next week to reassess his renal function. Also, note the patient may need a longer course of antibiotics to treat his pansinusitis if it does n ot resolve with this treatment.
== END 2017-07-14 12:08 | disposition home or self-care (01) | DRG 194 ==
LOC: ERS 21:39 → 2SW 07-09 00:15 → OBSVTOIN 07-10 10:08 → 2NO 07-10 11:39
PROVIDERS: ADMIT Internal Medicine; ATTEND Internal Medicine
PROC: 30233N1 Transfusion of Nonautologous Red Blood Cells into Peripheral Vein, Percutaneous Approach (ICD-10-PCS; principal; 2017-07-11)
DX: J18.1 Lobar pneumonia, unspecified organism (principal); N17.9 Acute kidney failure, unspecified; Z94.0 Kidney transplant status; E11.22 Type 2 diabetes mellitus with diabetic chronic kidney disease; I12.9 Hypertensive chronic kidney disease with stage 1 through stage 4 chronic kidney disease, or unspecified chronic kidney disease; H54.62 Unqualified visual loss, left eye, normal vision right eye; Z79.899 Other long term (current) drug therapy; Z79.82 Long term (current) use of aspirin; Z79.4 Long term (current) use of insulin; D64.9 Anemia, unspecified; E11.319 Type 2 diabetes mellitus with unspecified diabetic retinopathy without macular edema; J32.4 Chronic pansinusitis; R00.1 Bradycardia, unspecified; N18.9 Chronic kidney disease, unspecified
CPT/HCPCS: 36415; 36416; 36430; 71046; 80048; 80053; 80197; 80202; 81003; 82274; 83880; 85025; 86850; 86900; 86901; 87040; 87081; 87430; 87804; 93005; 93798; 94640; 94760; A4216; J1644; J1940; J2543; J3370; J7050; J7507; P9016

== ENCOUNTER 2017-12-29 11:41 | Emergency (ER) | payer MEDICARE ==
--- NOTE | 2017-12-29 12:15 | RAD ---
PORTABLE CHEST 1 VIEW: Date: 12/29/17 Time: 1101 hours HISTORY: Shortness of breath. Dyspnea. FINDINGS/IMPRESSION: Comparison made with exam of 07/10/17. The heart is enlarged. There is pulmonary vascular congestion. No lobar consolidation, pneumothoraces , or large effusions are seen. Small effusions may be present. POS: [facility]
[2017-12-29 12:30] LABS: #Eosinphils 0.1 thou/uL (0.0-0.7); #Lymphocytes 0.9 thou/uL (1.20-3.40); #Monocytes 0.5 thou/uL (0.11-0.59); #Neutrophils 3.8 thou/uL (1.40-6.50); %Basophils 0.3 % (0.0-1.0); %Eosinophils 2.5 % (0.0-10.0); %Lymphocytes 16.6 % (21.0-51.0); %Monocytes 9.6 % (0.0-10.0); Mean Corpuscular HGB CONC 31.8 g/dL (32.0-36.0); Mean Corpuscular Volume 91.2 fL (78.0-98.0); Mean Platelet Volume 8.1 fL (7.4-10.4); Platelet Count 201 thou/uL (130-400); RBC Distribution Width 14.2 % (11.5-14.5); White Blood Cell (WBC) Count 5.4 thou/uL (4.8-10.8)
[2017-12-29 12:44] LABS: ALT (SGPT) 29 U/L (8-55); AST (SGOT) 22 U/L (5-34); Alkaline Phosphatase 179 U/L (40-150); Anion Gap 12 mmol/L (10-20); BUN (Urea Nitrogen) 29 mg/dL (8.4-25.7); Bilirubin, Total 0.6 mg/dL (0.2-1.2); CK (CPK) 56 U/L (30-200); Calc. Creatinine Clearance 0 mL/min (70-130); Calcium 9.1 mg/dL (7.8-10.44); Carbon Dioxide 24 mmol/L (23-31); Chloride 104 mmol/L (98-107); Estimated GFR-MDRD 62; Globulin 3.6 g/dL (2.4-3.5); Glucose 142 mg/dL (80-115); Potassium 4.6 mmol/L (3.5-5.1); Protein, Total 7.6 g/dL (5.8-8.1); Sodium 135 mmol/L (136-145)
[2017-12-29 12:55] LABS: CKMB 0.9 ng/mL (0-6.6); Troponin I Less than 0.010 ng/mL (< 0.028)
[2017-12-29] MEDS ORDERED: Furosemide 40 MG/4 ML VIAL ONE (15:16)
[2017-12-29] MEDS ORDERED: Furosemide 20 MG/2 ML VIAL ONE (15:16)
--- NOTE | 2017-12-29 15:44 | CT ---
CT CHEST NONCONTRAST: HISTORY: Dyspnea. Chest pain. FINDINGS: A small amount of bilateral pleural fluid with atelectasis at each lung base. Pulmonary vasculature is engorged with widespread reticulonodular interstitial prominence and subtle ground-glass opacities . Subtle patchy infiltrate at the peripheral aspect of the right upper lobe is favored to be related to vascular congestion. No evidence of pneumothorax. Calcification within the arterial structures including the coronary art eries. Lack of contrast limits evaluation of the soft tissues. Nonspecific lymph nodes are scattere d about the mediastinum. Small gallstone in the partially visualized upper abdomen. Kidneys are atr ophied and incompletely imaged. IMPRESSION: 1. Small amount of bilateral pleural fluid is likely related to pulmonary vascular congestion. No l obar consolidation or other acute process otherwise demonstrated. 2. Atherosclerosis. 3. Cholelithiasis. POS: [facility]
== END 2017-12-29 15:50 | disposition home or self-care (01) ==
LOC: ERS 11:41
DX: E87.70 Fluid overload, unspecified (principal); E11.9 Type 2 diabetes mellitus without complications; E78.5 Hyperlipidemia, unspecified; I10 Essential (primary) hypertension; Z79.4 Long term (current) use of insulin; Z79.899 Other long term (current) drug therapy
CPT/HCPCS: 71045; 71250; 80053; 82550; 82553; 83880; 84484; 85025; 93005; 96374; J1940

== ENCOUNTER 2018-07-11 11:29 | Inpatient (IN) | payer MEDICARE ==
[2018-07-11 12:25] LABS: #Eosinphils 0.1 thou/uL (0.0-0.7); #Monocytes 0.6 thou/uL (0.11-0.59); #Neutrophils 4.2 thou/uL (1.40-6.50); %Basophils 0.6 % (0.0-1.0); %Eosinophils 1.9 % (0.0-10.0); %Lymphocytes 16.6 % (21.0-51.0); %Monocytes 9.8 % (0.0-10.0); %Neutrophils 71.1 % (42.0-75.0); Hemoglobin 8.6 g/dL (14.0-18.0); Mean Corpuscular HGB CONC 32.8 g/dL (32.0-36.0); Mean Corpuscular Hemoglobin 29.2 pg (27.0-31.0); Mean Corpuscular Volume 88.8 fL (78.0-98.0); Mean Platelet Volume 8.6 fL (7.4-10.4); Platelet Count 142 thou/uL (130-400); RBC Distribution Width 15.1 % (11.5-14.5); Red Blood Cell (RBC) Count 2.94 mill/uL (4.70-6.10); White Blood Cell (WBC) Count 5.9 thou/uL (4.8-10.8)
[2018-07-11 12:47] LABS: ALT (SGPT) 18 U/L (8-55); AST (SGOT) 18 U/L (5-34); Alkaline Phosphatase 146 U/L (40-150); Anion Gap 14 mmol/L (10-20); BUN (Urea Nitrogen) 35 mg/dL (8.4-25.7); Bilirubin, Total 0.5 mg/dL (0.2-1.2); Calc. Creatinine Clearance 0 mL/min (70-130); Calcium 8.9 mg/dL (7.8-10.44); Carbon Dioxide 21 mmol/L (23-31); Chloride 108 mmol/L (98-107); Estimated GFR-MDRD 64; Globulin 3.4 g/dL (2.4-3.5); Glucose 149 mg/dL (80-115); Potassium 4.6 mmol/L (3.5-5.1); Protein, Total 7.4 g/dL (5.8-8.1); Sodium 138 mmol/L (136-145)
[2018-07-11] MEDS ORDERED: Furosemide 20 MG/2 ML VIAL ONE (12:52)
--- NOTE | 2018-07-11 13:44 | RAD ---
CHEST 1 VIEW: Date: 07/11/18 COMPARISON: 12/29/17. HISTORY: Shortness of breath. FINDINGS: Enlarged cardiac silhouette. Pulmonary vessels and hilum are normal. Costophrenic angles are clear. N o masses or consolidation. No pneumothorax or osseous abnormalities. IMPRESSION: Cardiomegaly. POS: [facility]
[2018-07-11] MEDS ORDERED: Zolpidem Tartrate 5 MG TAB PO PRN (13:45)
[2018-07-11] MEDS ORDERED: Acetaminophen 325 MG TAB PO PRN (13:45)
[2018-07-11] MEDS ORDERED: Ondansetron ODT 4 MG TAB PO PRN (13:45)
[2018-07-11] MEDS ORDERED: Dextrose 5% in Water 1,000 ML IV PRN (13:45)
[2018-07-11] MEDS ORDERED: Dextrose 50% Abboject 50 ML SYRINGE SLOW IVP PRN (13:45)
--- NOTE | 2018-07-11 14:44 | HP ---
PRIMARY CARE PROVIDER: Dr. Cat Babin. GANG RIPSAW OPERATOR: Edelmira Bernard MD HISTORY OF PRESENT ILLNESS: The patient presents with tightness in his chest, shortness of breath with exertion and lying down, leg swelling, and just generalized ill feeling for about one week. He denies any sweats or nausea. No cough or wheezing. PAST MEDICAL HISTORY: His past medical history apparently for diabetes mellitus type 2 insulin dependent, hypertension, chronic renal failure status post transplant of right kidney approximately six years ago, dyslipidemia, and gout. He is blind in the left eye. ALLERGIES: NO KNOWN DRUG ALLERGIES. CURRENT MEDICATIONS: 1. Prograf 1 mg twice a day. 2. Myfortic 360 mg twice a day. 3. Pepcid 20 mg once a day. 4. Lasix 20 mg a day. 5. Hydralazine has been discontinued. 6. Glipizide 10 mg twice a day. 7. Atorvastatin 10 mg once a day. 8. Losartan 100 mg a day. 9. Nifedipine 60 mg 2 tablets once a day. 10. Aspirin 81 mg a day. 11. Sliding scale insulin with meals. 12. Lantus 15 units at bedtime. 13. Lexapro 10 mg once a day. FAMILY HISTORY: No CHF or renal disease in the family. SOCIAL HISTORY: . Daughter at bedside. Full code status. , next of kin. Occasional alcohol use. No tobacco or illicit drugs. REVIEW OF SYSTEMS: GENERAL: No fever, chills, or fainting. EYES: He is blind in the left eye. No visual blurring, flashing lights, etc. EAR, NOSE, AND THROAT: No ear pain or drainage. No nasal bleeding. No trouble swallowing. CARDIAC: See present illness. RESPIRATIONS: No cough, wheezing, or asthma. GASTROINTESTINAL: He has early satiety. Feels bloated much at the time. No true nausea or vomiting. No true abdominal pain, diarrhea, or constipation. GENITOURINARY: No hematuria or dysuria. Makes urine adequately. MUSCULOSKELETAL: No pain in his arms and legs, but he does have leg edema. NEUROLOGIC: No strokes, seizures, or focal weakness. PSYCHIATRIC: No history of anxiety or depression. SKIN: No bruising, bleeding, or rash. HEME/LYMPH: No tender or swollen lymph nodes in the axilla, inguinal, or cervical area. PHYSICAL EXAMINATION: GENERAL: Alert, appropriate, Armenian speaking man with history obtained through an biomedical engineering technologist, his daughter. VITAL SIGNS: Blood pressure 147/55, pulse 56, respirations 12, O2 saturation 94, and temperature 98.2. HEENT: Examination of his head, eyes, ears, nose, and throat, right pupil round and reactive. Left eye is completely opacified across the cornea. Extraocular movements are grossly intact. Sclerae are white. Tympanic membranes are clear. Nose is clear. Oral mucous membranes are wet. Multiple missing teeth. NECK: No jugular venous distention, adenopathy, or thyromegaly. CHEST: Rales to mid scapula. Clear anteriorly. HEART: Regular rate and rhythm. First and second heart sounds were clear. There were no appreciated murmurs. ABDOMEN: Somewhat protuberant. No tenderness. No hepatosplenomegaly. No mass. No bruit. Bowel sounds present. EXTREMITIES: Reveal 2+ edema above the knee. No cyanosis or clubbing. PULSES: Carotid, radial, femoral, and dorsalis pedis pulses palpable and symmetric. SKIN: Warm and dry without bruises or rash. HEME/LYMPH: Reveals no tender or swollen nodes in nodes in axilla, inguinal, or cervical area. NEUROLOGIC: Blind in the left eye. Normal pupillary response. Extraocular movement on the right. Face is symmetric. Tongue protrudes midline. Able to squeeze eyes close and smile normally. Deep tendon reflexes essentially absent. Moves all extremities. Toes downgoing. IMAGING DATA: EKG pending. Chest x-ray, cardiomegaly, some evidence of pulmonary vascular congestion, poor inspiration, reviewed by me. LABORATORY DATA: BNP mildly elevated at 316 and troponin 0.017. Renal function is good. BUN 34, creatinine 1.16 with estimated GFR of 64, and blood sugar 149. Liver function tests normal. Sodium and potassium normal and CO2 of 21. He is anemic, 8.6 g of hemoglobin, white count 5.9, and platelet count of 142,000. ADMITTING DIAGNOSES: 1. Suspect acute diastolic heart failure as his previous echo showed diastolic dysfunction with rales and peripheral edema. 2. Diabetes mellitus type 2 with insulin dependent with chronic kidney disease. 3. Chronic kidney disease, status post transplant. 4. Hypertension. 5. Dyslipidemia. 6. Anemia of chronic disease. PLAN: 1. IV diuresis. 2. Echocardiogram. 3. Continue home medicines except the p.o. Lasix. Repeat CBC and basic metabolic profile tomorrow. Serial troponins. Consult Dr. Bernard. Job ID: [id number]
[2018-07-11 14:51] LABS: Troponin I Less than 0.010 ng/mL (< 0.028)
[2018-07-11 14:56] VITALS: BMI 35.1
[2018-07-11] MEDS: Heparin 5,000 UNITS/ML VIAL SC SCH ×2 (15:59→20:33)
[2018-07-11] MEDS: Furosemide 40 MG/4 ML VIAL SLOW IVP SCH (15:59)
[2018-07-11] MEDS: hydrALAZINE 25 MG TAB PO SCH ×2 (17:05→20:34)
[2018-07-11] MEDS: glipiZIDE 10 MG TAB PO SCH (17:05)
[2018-07-11 17:24] LABS: Troponin I Less than 0.010 ng/mL (< 0.028)
--- NOTE | 2018-07-11 18:46 | CON ---
DATE OF CONSULTATION: 07/11/2018 REASON FOR CONSULTATION: Heart failure. PRIMARY CHARGER TESTER: Edelmira Bernard MD HISTORY OF PRESENT ILLNESS: Mr. Bhat is a very pleasant 62-year-old gentleman, who is Serbian-speaking mostly, who comes to the hospital for increased shortness of breath and leg swelling. He has noticed worsening, just feeling ill for the last week. Denies any nausea or vomiting. No cough. He was unable to lay flat on his back without getting short winded. He came into the ER for this and was found to be in heart failure, was given a dose of Lasix IV and admitted for further evaluation. PAST MEDICAL HISTORY: 1. Type 2 diabetes. 2. Hypertension. 3. Chronic kidney disease, status post kidney transplant 6 years ago. 4. Hyperlipidemia. 5. Gout. 6. Left eye blindness. OUTPATIENT MEDICATIONS: 1. Prograf 1 mg twice a day. 2. Myfortic 360 mg twice a day. 3. Pepcid 20 mg a day. 4. Lasix 20 mg a day. 5. Glipizide 10 mg b.i.d. 6. Atorvastatin 10 mg a day. 7. Losartan 100 mg a day. 8. Nifedipine 60 mg 2 tablets once a day. 9. Aspirin 81 a day. 10. Insulin sliding scale. 11. Lantus 15 units at bedtime. 12. Lexapro 10 mg a day. FAMILY HISTORY: No early coronary artery disease. SOCIAL HISTORY: No alcohol, tobacco, or drugs. REVIEW OF SYSTEMS: A 12-point review of systems was done and was all negative unless stated in the history of present illness. PHYSICAL EXAMINATION: VITAL SIGNS: Temperature 97.5, pulse 62, respiratory rate 14, saturating 96% on room air, and blood pressure 189/79. GENERAL: Awake, alert, oriented x3, and in no distress. HEENT: Normocephalic and atraumatic. NECK: Supple. LUNGS: Clear. CARDIOVASCULAR: S1 and S2. No S3 or S4. No murmurs. ABDOMEN: Soft. Positive bowel sounds. EXTREMITIES: 3+ edema. SKIN: Warm and dry. LABORATORY DATA: Laboratory work was reviewed. CBC; white count of 5.9, hemoglobin of 8.6, hematocrit of 26, platelet count of 142. His hemoglobin is actually close to his baseline of 8.5 to 9. Chemistry with a sodium of 138, potassium of 4.6, chloride of 108, carbon dioxide of 21, anion gap of 14, BUN of 35, creatinine of 1.16. His creatinine baseline runs between 1 to 1.2, so this is at his baseline. Troponin is negative x3. BNP is 316. Glucose is 161. Chest x-ray showed cardiomegaly with normal pulmonary vessels with clear costophrenic angles. Most recent echocardiogram was done on May 2017 and showed an EF of 50% to 55% with diastolic heart failure. Aortic valve was thickened with mild aortic valve stenosis, valve area 1.7 cm2. ASSESSMENT: 1. Acute on chronic diastolic heart failure. 2. Mild aortic stenosis, a year ago. 3. Chronic kidney disease stage 5, status post renal transplant 6 years ago. PLAN: 1. Agree with continuing diuresis. 2. Echocardiogram to assess right-sided chambers as he seems to be in right-sided heart failure. 3. Further recommendations per results of echocardiogram. 4. Dr. Bernard will continue evaluation in the morning. Job ID: [id number]
[2018-07-11] MEDS: Tacrolimus 1 MG CAP PO SCH (20:33)
[2018-07-11] MEDS: Mycophenolate ER 180 MG TAB PO SCH (20:33)
[2018-07-11] MEDS: hydrALAZINE 20 MG/ML VIAL SLOW IVP PRN (20:34)
[2018-07-11] MEDS: Atorvastatin Calcium 10 MG TAB PO SCH (20:34)
[2018-07-11] MEDS ORDERED: Non-Formulary Item 1 EACH (Insulin Glargine,Hum.Rec.Anlog [Lantus Solostar] 15 UNIT) SQ SCH (21:00)
[2018-07-11] MEDS: Insulin Glargine 15 UNITS in Pre-Filled Syringe 1 EACH SC SCH (21:15)
[2018-07-11] MEDS ORDERED: HumaLOG 300 UNITS/3 ML VIAL SC PRN (22:56)
[2018-07-12 04:52] LABS: #Eosinphils 0.2 thou/uL (0.0-0.7); #Lymphocytes 1.1 thou/uL (1.20-3.40); #Monocytes 0.5 thou/uL (0.11-0.59); #Neutrophils 3.7 thou/uL (1.40-6.50); %Basophils 0.8 % (0.0-1.0); %Eosinophils 2.9 % (0.0-10.0); %Lymphocytes 19.8 % (21.0-51.0); %Monocytes 9.3 % (0.0-10.0); %Neutrophils 67.2 % (42.0-75.0); Hemoglobin 9.1 g/dL (14.0-18.0); Mean Corpuscular HGB CONC 31.5 g/dL (32.0-36.0); Mean Corpuscular Hemoglobin 28.8 pg (27.0-31.0); Mean Corpuscular Volume 91.3 fL (78.0-98.0); Mean Platelet Volume 8.9 fL (7.4-10.4); Platelet Count 161 thou/uL (130-400); RBC Distribution Width 15.3 % (11.5-14.5); Red Blood Cell (RBC) Count 3.18 mill/uL (4.70-6.10); White Blood Cell (WBC) Count 5.5 thou/uL (4.8-10.8)
[2018-07-12 05:14] LABS: Anion Gap 13 mmol/L (10-20); BUN (Urea Nitrogen) 31 mg/dL (8.4-25.7); Calc. Creatinine Clearance 95 mL/min (70-130); Calcium 9.4 mg/dL (7.8-10.44); Carbon Dioxide 22 mmol/L (23-31); Chloride 110 mmol/L (98-107); Estimated GFR-MDRD 75; Glucose 65 mg/dL (80-115); Potassium 3.9 mmol/L (3.5-5.1); Sodium 141 mmol/L (136-145)
[2018-07-12] MEDS: Furosemide 40 MG/4 ML VIAL SLOW IVP SCH ×2 (05:21→15:27)
[2018-07-12] MEDS: glipiZIDE 10 MG TAB PO SCH ×2 (08:35→17:43)
[2018-07-12] MEDS: hydrALAZINE 25 MG TAB PO SCH ×4 (08:37→21:33)
[2018-07-12] MEDS: Aspirin Chewable 81 MG TAB PO SCH (08:37)
[2018-07-12] MEDS: Escitalopram Oxalate 10 mg Tablet PO SCH (08:38)
[2018-07-12] MEDS: Tacrolimus 1 MG CAP PO SCH ×2 (08:38→21:34)
[2018-07-12] MEDS: Famotidine 20 MG TAB PO SCH (08:38)
[2018-07-12] MEDS: Losartan 25 MG TAB PO SCH (08:39)
[2018-07-12] MEDS: Mycophenolate ER 180 MG TAB PO SCH ×2 (08:39→21:33)
[2018-07-12] MEDS: Heparin 5,000 UNITS/ML VIAL SC SCH ×3 (08:40→21:33)
[2018-07-12] MEDS: NIFEdipine XL 60 MG TAB PO SCH (08:40)
[2018-07-12] MEDS ORDERED: Aspirin Chewable 81 MG TAB PO SCH (09:00)
[2018-07-12] MEDS: hydrALAZINE 20 MG/ML VIAL SLOW IVP PRN (11:17)
--- NOTE | 2018-07-12 13:42 | PDOC.CTH ---
Cardiology Progress Note - Subjective The pt seen and examined. No overnight events. No cardiac complaints. - Objective Vital Signs Temp Pulse Resp BP Pulse Ox 07/12/18 12:42 66 149/67 H 07/12/18 11:18 99.4 F 64 14 186/68 H 95 07/12/18 08:10 99.7 F H 62 14 188/88 H 93 L 07/12/18 08:00 93 L 07/12/18 07:47 94 L 07/12/18 03:38 97.7 F 65 16 150/65 H 94 L Weight 201 lb 1 oz 07/11/18 07/12/18 07/13/18 06:59 06:59 06:59 Intake Total 450 Output Total 3325 Balance -2875 - Physical Examination General/Neuro: alert & oriented x3 Neck: no JVD present Lungs: CTA Heart: RRR Abdomen: soft Extremities: other: (1-2+ pitting BLE edema) - Telemetry Telemetry Rhythm: SR - Labs Result Diagrams: 07/12/18 04:27 07/12/18 04:27 Troponin/CKMB Troponin I Less than 0.010 ng/mL (< 0.028) 07/11/18 16:20 - Assessment/Plan 1. HTN urgency - Increase Hydralazine from 50mg QID to 75mg TID from today. 2. Acute on Chronic diastolic HF - improving per family; on Lasix 40mg IV BID and Losartan; will start Coreg 3.125mg 1/2 tab BID and will increase if the pt can tolerate 3. CKD with hx of kidney tx in 2012 - managed by cuff matcher 4. DM type 2 - 5. Hyperlipidemia - On Lipitor 10mg qd 6. Gout - MAR reviewed * Low salt diet recommended to the pt. Pt. seen and eval. by me. I agree with the A/P by the SHOPPING INVESTIGATOR. According to his family, and the pt. agreed, he has been having chest pressure for several weeks with exertion. I do not have any info about a prior cardiac cath or stress test. I will order a stress test for tomorrow. Chest clear. RRR. gjmays Review of Systems - Review of Systems Constitutional: reports: no symptoms reported EENTM: reports: no symptoms reported Respiratory: reports: no symptoms reported Cardiac (ROS): reports: no symptoms reported ABD/GI: reports: no symptoms reported : reports: no symptoms reported Musculoskeletal: reports: no symptoms reported
--- NOTE | 2018-07-12 16:06 | PDOC.PN ---
- Subjective Encounter Start Date: 07/12/18 Encounter Start Time: 13:10 Feeling better. Breathing more comfortably. BP has been running very high at home for the last two months. - Objective Resuscitation Status - Order Detail: 07/11/18 13:37 Resuscitation Status Routine Resuscitation Status: FULL: Full Resuscitation Vital Signs & Weight: Vital Signs (12 hours) Temp Pulse Resp BP Pulse Ox 07/12/18 15:17 97.6 F 62 14 116/56 L 95 07/12/18 12:42 66 149/67 H 07/12/18 11:18 99.4 F 64 14 186/68 H 95 07/12/18 08:10 99.7 F H 62 14 188/88 H 93 L 07/12/18 08:00 93 L 07/12/18 07:47 94 L Weight Weight 201 lb 1 oz I&O: 07/11/18 07/12/18 07/13/18 06:59 06:59 06:59 Intake Total 450 Output Total 3325 Balance -2875 Result Diagrams: 07/12/18 04:27 07/12/18 04:27 Additional Labs: Accuchecks 07/12/18 07/12/18 07/12/18 10:41 05:58 05:08 POC Glucose 109 108 60 L 07/11/18 07/11/18 20:07 17:14 POC Glucose 274 H 161 H Phys Exam - Physical Examination Constitutional: NAD Respiratory: no wheezing, no rales, no rhonchi Cardiovascular: RRR, no significant murmur, no rub Gastrointestinal: soft, non-tender, no distention, positive bowel sounds 1+ pitting edema. Psychiatric: normal affect, A&O x 3 Dx/Plan (1) Acute diastolic (congestive) heart failure Code(s): I50.31 - ACUTE DIASTOLIC (CONGESTIVE) HEART FAILURE Status: Ruled- out (2) Diabetes type 2, controlled Code(s): E11.9 - TYPE 2 DIABETES MELLITUS WITHOUT COMPLICATIONS Status: Chronic Comment: Continue accuchecks, insulin sliding scale (3) Dyslipidemia Code(s): E78.5 - HYPERLIPIDEMIA, UNSPECIFIED Status: Chronic Comment: continue statin (4) Hypertension Code(s): I10 - ESSENTIAL (PRIMARY) HYPERTENSION Status: Chronic Comment: Monitor vital signs, titrate antihypertensives as needed (5) Renal transplant, status post Code(s): Z94.0 - KIDNEY TRANSPLANT STATUS Status: Chronic Comment: continue mycophenolate, tacrolimus - Plan Continue IV diuresis. -: BP has been high, but now significantly down. -: ECHO pending. Cards following. * .
[2018-07-12] MEDS: Carvedilol 3.125 MG TAB PO SCH (17:42)
[2018-07-12] MEDS: Atorvastatin Calcium 10 MG TAB PO SCH (21:33)
[2018-07-12] MEDS: Insulin Glargine 15 UNITS in Pre-Filled Syringe 1 EACH SC SCH (21:33)
[2018-07-13] MEDS: glipiZIDE 10 MG TAB PO SCH ×2 (05:29→17:14)
[2018-07-13] MEDS: hydrALAZINE 25 MG TAB PO SCH ×3 (05:29→21:00)
[2018-07-13] MEDS: Mycophenolate ER 180 MG TAB PO SCH ×2 (05:29→21:00)
[2018-07-13] MEDS: NIFEdipine XL 60 MG TAB PO SCH (05:29)
[2018-07-13] MEDS: Heparin 5,000 UNITS/ML VIAL SC SCH ×3 (05:30→21:00)
[2018-07-13] MEDS: Famotidine 20 MG TAB PO SCH (05:30)
[2018-07-13] MEDS: Tacrolimus 1 MG CAP PO SCH ×2 (05:30→21:00)
[2018-07-13] MEDS: Aspirin Chewable 81 MG TAB PO SCH (05:30)
[2018-07-13] MEDS: Escitalopram Oxalate 10 mg Tablet PO SCH (05:30)
[2018-07-13] MEDS: Furosemide 40 MG/4 ML VIAL SLOW IVP SCH ×2 (05:30→13:44)
[2018-07-13] MEDS: Losartan 25 MG TAB PO SCH (09:42)
[2018-07-13] MEDS: Carvedilol 3.125 MG TAB PO SCH ×2 (09:42→17:15)
[2018-07-13] MEDS: HumaLOG 300 UNITS/3 ML VIAL SC PRN ×2 (13:44→17:16)
--- NOTE | 2018-07-13 13:57 | PDOC.CTH ---
Cardiology Progress Note - Subjective The pt seen and examined. No overnight events. No cardiac complaints. - Objective Vital Signs Temp Pulse Resp BP Pulse Ox 07/13/18 12:00 96.4 F L 60 19 160/69 H 96 07/13/18 07:48 98.0 F 62 16 167/72 H 95 07/13/18 05:29 59 L 07/13/18 03:05 98.2 F 59 L 14 165/70 H 95 Weight 204 lb 07/12/18 07/13/18 07/14/18 06:59 06:59 06:59 Intake Total 450 1220 Output Total 3325 1800 Balance -2985 -580 - Physical Examination General/Neuro: alert & oriented x3 Neck: no JVD present Lungs: CTA Heart: RRR Abdomen: soft Extremities: other: (No edema) - Telemetry Telemetry Rhythm: SR - Labs Result Diagrams: 07/12/18 04:27 07/12/18 04:27 Troponin/CKMB Troponin I Less than 0.010 ng/mL (< 0.028) 07/11/18 16:20 - Assessment/Plan 1. HTN urgency - Increase Hydralazine from 75mg TID to 100mg TID from today. 2. Acute on Chronic diastolic HF - improving per family; on Lasix 40mg IV BID, which will be changed to PO from tomorrow; On Losartan and Coreg 3.125mg 1/2 tab BID and will increase if the pt can tolerate 3. CKD with hx of kidney transplant in 2012 - managed by stone processing machine operator 4. DM type 2 - 5. Hyperlipidemia - On Lipitor 10mg qd 6. Gout - 7. CP - will have stress test tomorrow MAR reviewed * Low salt diet recommended to the pt. Pt. seen and eval. by me. I agree with the A/P by the TWISTING OPERATOR. Plan for stress test in AM. May need help from nephrology with his BP meds. gjmays Review of Systems - Review of Systems Constitutional: reports: no symptoms reported EENTM: reports: no symptoms reported Respiratory: reports: no symptoms reported Cardiac (ROS): reports: no symptoms reported ABD/GI: reports: no symptoms reported : reports: no symptoms reported Musculoskeletal: reports: no symptoms reported
--- NOTE | 2018-07-13 15:08 | PDOC.PN ---
- Subjective Encounter Start Date: 07/13/18 Encounter Start Time: 09:45 Feels well. Ready to go home. He has no breathing problems today. Denies chest pain. - Objective Resuscitation Status - Order Detail: 07/11/18 13:37 Resuscitation Status Routine Resuscitation Status: FULL: Full Resuscitation Vital Signs & Weight: Vital Signs (12 hours) Temp Pulse Resp BP Pulse Ox 07/13/18 12:00 96.4 F L 60 19 160/69 H 96 07/13/18 07:48 98.0 F 62 16 167/72 H 95 07/13/18 05:29 59 L Weight Weight 204 lb I&O: 07/12/18 07/13/18 07/14/18 06:59 06:59 06:59 Intake Total 450 1220 Output Total 3325 1800 Balance -2785 -580 Result Diagrams: 07/12/18 04:27 07/12/18 04:27 Additional Labs: Accuchecks 07/13/18 07/13/18 07/12/18 10:56 05:07 20:22 POC Glucose 156 H 83 178 H 07/12/18 16:29 POC Glucose 134 H Phys Exam - Physical Examination Constitutional: NAD Respiratory: no wheezing, no rales, no rhonchi, clear to auscultation bilateral Cardiovascular: RRR, no significant murmur, no rub Gastrointestinal: soft, non-tender, no distention, positive bowel sounds Trace LE edema. Psychiatric: normal affect, A&O x 3 Dx/Plan (1) Acute diastolic (congestive) heart failure Code(s): I50.31 - ACUTE DIASTOLIC (CONGESTIVE) HEART FAILURE Status: Acute (2) Diabetes type 2, controlled Code(s): E11.9 - TYPE 2 DIABETES MELLITUS WITHOUT COMPLICATIONS Status: Chronic Comment: Continue accuchecks, insulin sliding scale (3) Dyslipidemia Code(s): E78.5 - HYPERLIPIDEMIA, UNSPECIFIED Status: Chronic Comment: continue statin (4) Hypertension Code(s): I10 - ESSENTIAL (PRIMARY) HYPERTENSION Status: Chronic Comment: Monitor vital signs, titrate antihypertensives as needed (5) Renal transplant, status post Code(s): Z94.0 - KIDNEY TRANSPLANT STATUS Status: Chronic Comment: continue mycophenolate, tacrolimus (6) Chest pain Code(s): R07.9 - CHEST PAIN, UNSPECIFIED Status: Acute - Plan * Stress test today. * He has diuresed well and feels back to baseline. * If stress is ok, will anticipate DC today to have outpatient follow up with Cards.
[2018-07-13] MEDS: Atorvastatin Calcium 10 MG TAB PO SCH (21:00)
[2018-07-13] MEDS: Insulin Glargine 15 UNITS in Pre-Filled Syringe 1 EACH SC SCH (21:01)
[2018-07-14] MEDS: glipiZIDE 10 MG TAB PO SCH (07:34)
[2018-07-14] MEDS ORDERED: Regadenoson 0.4 MG/5 ML SYRINGE ONE (10:30)
[2018-07-14] MEDS: Famotidine 20 MG TAB PO SCH (11:37)
[2018-07-14] MEDS: Aspirin Chewable 81 MG TAB PO SCH (11:37)
[2018-07-14] MEDS: hydrALAZINE 25 MG TAB PO SCH ×2 (11:38→15:31)
[2018-07-14] MEDS: Losartan 25 MG TAB PO SCH (11:38)
[2018-07-14] MEDS: Escitalopram Oxalate 10 mg Tablet PO SCH (11:38)
[2018-07-14] MEDS: NIFEdipine XL 60 MG TAB PO SCH (11:38)
[2018-07-14] MEDS: Furosemide 40 MG TAB PO SCH ×2 (11:38→15:31)
[2018-07-14] MEDS: Heparin 5,000 UNITS/ML VIAL SC SCH ×2 (11:39→15:31)
[2018-07-14] MEDS: Carvedilol 3.125 MG TAB PO SCH (12:19)
[2018-07-14] MEDS: Mycophenolate ER 180 MG TAB PO SCH (12:20)
[2018-07-14] MEDS: Tacrolimus 1 MG CAP PO SCH (12:20)
[2018-07-14] MEDS: HumaLOG 300 UNITS/3 ML VIAL SC PRN (12:22)
--- NOTE | 2018-07-14 13:23 | NM ---
Nuclear medicine myocardial perfusion evaluation Radiopharmaceutical: 28.9, and 29 mCi technetium 99m sestamibi IV administered at stress and rest, re spectively Clinical indication: Chest pain Reference is made to 04/24/2015 myocardial perfusion exam FINDINGS: There are no significant fixed or reversible filling defects of the left ventricular carter. There is chamber enlargement of the left ventricle. Gated imaging does reveal contractility and motion of the left ventricular carter, with a calculated LVEF of 59%. IMPRESSION: 1. No evidence of ischemia, or scar. 2. Left ventricular chamber enlargement. Correlate with echocardiogram. 3. LVEF measures 59%.
--- NOTE | 2018-07-14 13:30 | STRESS ---
Acquisition Time: 2018-07-14 09:44:52 Total Exercise Time: 00:01:00 Test Indications: CHEST PAIN Medications: Protocol: LEXISCAN Max HR: 064 BPM 40% of Pred: 157 BPM Max BP: 138/060 mmHG Max Work Load: 1.0 METS THE APTIENT WAS INJECTED WITH LEXISCAN. HE DID NOT DEVELOP CHEST PAIN. THERE WAS NO SIGNIFICANT ST SEGMENT DEPRESSION. AWAIT NUCLEAR IMAGES FOR DEFINITIVE DIAGNOSIS. Confirmed by ULYSSES VALDOVINOS ([id number]), news videotape editor JAROD LINDER ([id number]) on 07/14/2018 1:29:45 PM Referred By: MD MANLEY Confirmed By:ULYSSES VALDOVINOS
[2018-07-14 15:36] VITALS: BP 163/77; TEMP 98
--- NOTE | 2018-07-15 19:50 | DIS ---
DATE OF ADMISSION: 07/11/2018 DATE OF DISCHARGE: 07/14/2018 DISCHARGE DIAGNOSES: 1. Acute on chronic diastolic heart failure. 2. Diabetes mellitus, type 2, controlled. 3. Dyslipidemia. 4. Hypertension. 5. History of renal transplant. 6. Chest pain. HISTORY OF PRESENT ILLNESS: The patient is a 62-year-old male, who has the above-mentioned history of the renal transplant, who presented through the emergency department with tightness in his chest and shortness of breath on exertion and some orthopnea and leg swelling. The patient's BNP was mildly elevated at 316. He did have some peripheral edema on this physical exam. HOSPITAL COURSE: The patient was admitted with what appeared to be a diastolic decompensated congestive heart failure. He had an echocardiogram performed, which revealed an ejection fraction of 50% to 55% with mild restrictive filling pattern. He had some diuresis. He was seen in consultation by Cardiology, who agreed with the diuresis in the echocardiogram. Over the following days, the patient had significant improvement. However, Cardiology recommended stress testing given his history of the chest pain. For some reason, I got held over one additional day and on 07/13. It got delayed and he had stress performed and completed on 07/14 and was negative. Therefore, the patient was felt to be stable. PHYSICAL EXAMINATION: VITAL SIGNS: On day of discharge, temperature 98.0, pulse 64, respirations 18, O2 saturations 96% on room air, and blood pressure was 163/77. GENERAL: The patient was awake, alert, pleasant, and cooperative. HEART: Regular rate and rhythm. LUNGS: Clear bilaterally. ABDOMEN: Soft, nontender, and nondistended. Positive bowel sounds. EXTREMITIES: Warm and dry with trace pitting edema. DISPOSITION: The patient is discharged to home. ACTIVITIES: As tolerated. DIET: He will be on a heart healthy diet. DISCHARGE MEDICATIONS: He will have; 1. coreg 1.5625 one p.o. b.i.d. 2. Lasix 40 mg daily. 3. Hydralazine 100 mg t.i.d. 4. He will continue with. a. Insulin. b. Aspirin. c. Glipizide. d. Atorvastatin. e. Tacrolimus. f. Mycophenolate. He will discontinue his previous dose of hydralazine and Lasix. For full details, please see the discharge medication list. FOLLOWUP: The patient is to follow up with Dr. Bernard in 3 days as well as Dr. Cat Babin on 07/18 at 10:45 a.m. Time spent in discharge activities, including face to face time with the patient , was 34 min. Job ID: [id number] MTDD
== END 2018-07-14 16:45 | disposition home or self-care (01) | DRG 291 ==
LOC: ERS 11:29 → 2NO 13:19
PROVIDERS: ADMIT Internal Medicine; ATTEND Internal Medicine
DX: I13.0 Hypertensive heart and chronic kidney disease with heart failure and stage 1 through stage 4 chronic kidney disease, or unspecified chronic kidney disease (principal); I50.33 Acute on chronic diastolic (congestive) heart failure; Z94.0 Kidney transplant status; E11.22 Type 2 diabetes mellitus with diabetic chronic kidney disease; N18.9 Chronic kidney disease, unspecified; E78.5 Hyperlipidemia, unspecified; H54.7 Unspecified visual loss; M10.9 Gout, unspecified; D63.1 Anemia in chronic kidney disease; I16.0 Hypertensive urgency; Z79.82 Long term (current) use of aspirin
CPT/HCPCS: 36415; 36416; 71045; 78452; 80048; 80053; 83880; 84484; 85025; 93005; 93017; 93306; 93798; 96374; A9500; J0360; J1644; J1825; J1940; J7507

== ENCOUNTER → 2018-11-06 | Day surgery (SDC) | payer MEDICARE ==
[2018-11-05 12:50] VITALS: BMI 29.9
[~2018-11-06] MED LIST: Iopamidol 370 76% 100 ML VIAL ONE; Lidocaine 1% (PF) 30 ML VIAL ONE
--- NOTE | 2018-11-06 14:54 | DIS ---
DATE OF ADMISSION: 11/06/2018 DATE OF DISCHARGE: 11/06/2018 DATE OF PROCEDURE: 11/06/2018. INDICATION FOR PROCEDURE: A 63-year-old gentleman with end-stage renal disease, who has undergone a renal transplant. He has been stable as far as his transplant has been concerned. He also has a history of hypertension. He became more short of breath recently. He has had a stress testing, which was unremarkable less than 6 months ago, which showed no evidence of ischemia. He had an echocardiogram performed also a couple of months ago, which showed ejection fraction of 50% to 55%, and by nuclear study, a stressed ejection fraction also was in the 50% to 60% range. He denies any chest pain. He is a gentleman, who has a class 3 heart failure. He was seen by Dr. Vázquez, and after discussion with the patient, he was advised to undergo a repeat cardiac catheterization. He did have a cardiac catheterization apparently several years ago at an outside facility and was not told that he had any significant disease at that time. So, he was advised to undergo a cardiac catheterization, where he underwent the procedure today. Using a biplane technique, an 18 mL of contrast total was used for the procedure. No left ventriculogram was performed, but the pressure in the left ventricle was measured as well as the gradient. There was no gradient across the aortic valve, and the left ventricular end-diastolic pressure was measured about 22 to 24 mmHg. He did tolerate the procedure well without any difficulties or complications. DIAGNOSES: His other diagnoses include hypertension, renal insufficiency, diabetes, status post renal transplant, dyslipidemia. He has a chronic diastolic heart failure. He is blind in one eye. DISCHARGE DIAGNOSES: Hypertension, renal insufficiency, diabetes, status post renal transplant, dyslipidemia. He has a chronic diastolic heart failure. He is blind in one eye. PROCEDURE IN HOSPITAL: Included cardiac catheterization with left ventricular pressures. His followup will be with Dr. Vázquez in the [facility] as per Dr. Vázquez's schedule, and also, he will see me back in the next 1 to 2 months in the office. His discharge medications will be the same as his admission medications. These will be adjusted by Dr. Vázquez in the [facility]. He is taking hydralazine, nifedipine, losartan, escitalopram, famotidine. He also takes Lantus insulin. He is on tacrolimus capsules, Coreg, Aldactone, and Lasix. I have not made any changes in his medications. HOSPITAL COURSE: The patient was admitted as noted above for the cardiomyopathy and underwent cardiac catheterization today. There were no difficulties or complications encountered. Total contrast was 18 mL. There was no evidence of significant coronary artery disease or stenosis. He does have mild calcifications noted in the left system in the left anterior descending artery as well as in the left circumflex, but no flow-limiting disease is noted. The LVEDP was approximately 24 mmHg. If he remains stable, he will be discharged to home in the next 3 to 4 hours. Job ID: [id number]
== END ==
LOC: CCL 06:00
PROVIDERS: ATTEND Internal Medicine Cardiovascular Disease
PROC: 4A023N7 Measurement of Cardiac Sampling and Pressure, Left Heart, Percutaneous Approach (ICD-10-PCS; principal; 2018-11-06)
PROC: B2051ZZ Plain Radiography of Left Heart using Low Osmolar Contrast (ICD-10-PCS; 2018-11-06)
DX: I42.9 Cardiomyopathy, unspecified (principal); I13.2 Hypertensive heart and chronic kidney disease with heart failure and with stage 5 chronic kidney disease, or end stage renal disease; E11.22 Type 2 diabetes mellitus with diabetic chronic kidney disease; N18.6 End stage renal disease; I50.32 Chronic diastolic (congestive) heart failure; E78.00 Pure hypercholesterolemia, unspecified; E78.5 Hyperlipidemia, unspecified; Z79.4 Long term (current) use of insulin; Z79.899 Other long term (current) drug therapy
CPT/HCPCS: 36416; 93458; C1769; J1644; J2001; Q9967

== ENCOUNTER 2019-04-24 13:21 | Outpatient (CLI) | payer MEDICARE, OTHER | END 2019-04-24 13:22 | disposition home or self-care (01) | LOC: ULT 13:21 | PROVIDERS: ATTEND Internal Medicine | DX: I08.3 Combined rheumatic disorders of mitral, aortic and tricuspid valves (principal); I31.3 Pericardial effusion (noninflammatory); I51.7 Cardiomegaly | CPT/HCPCS: 36415; 80053; 83735; 83880; 85025; 93306 ==